=== PATIENT | female | born 1960 | race Caucasian/White ===

== ENCOUNTER → 2016-09-02 | Outpatient (CLI) | payer OTHER ==
[~2016-09-02] MED LIST: ADAL40KI SQ; ALBUAER2 INH; ASPI81TA28 PO; CALC600T57 PO; FLUO20CA35 PO; MAGN250T22 PO; NAPR1TAB9 PO; OMEP40CA PO
[2016-09-02 13:17] LABS: ALT/SGPT 66 U/L (12-78); BLOOD UREA NITROGEN 10 mg/dl (7-18); CALCIUM 9.4 mg/dl (8.5-10.1); CARBON DIOXIDE 22 mmol/L (21-32); CHLORIDE 103 mmol/L (98-107); CHOLESTEROL 244 mg/dl (0-200); GLUCOSE 232 mg/dl (70-99); POTASSIUM 4.3 mmol/L (3.5-5.1); SODIUM 136 mmol/L (136-145)
[2016-09-02 13:27] LABS: ESTIMATED AVERAGE GLUCOSE 240 mg/dl; HA1C FLAG Normal (Normal)
[2016-09-02 13:28] LABS: ALB/GLOB RATIO 0.9 (0.9-2); ALKALINE PHOSPHATASE 139 U/L (45-117); AST/SGOT 40 U/L (15-37); CHOLESTEROL/HDL RATIO 3.5; HDL CHOLESTEROL 70 mg/dl; LDL CHOLESTEROL CALCULATED 124 mg/dl; TRIGLYCERIDES 250 mg/dl (0-150); VERY LOW DENSITY LIPOPROT CALC 50 mg/dl
== END | disposition home or self-care (01) ==
LOC: C.LABPVFM 10:30
PROVIDERS: ATTEND Nurse Practitioner Family
DX: F32.9 Major depressive disorder, single episode, unspecified (principal); R73.09 Other abnormal glucose

== ENCOUNTER → 2017-02-13 | Outpatient (CLI) | payer OTHER ==
[2017-02-13 17:57] LABS: ALT/SGPT 26 U/L (12-78); AST/SGOT 20 U/L (15-37); BLOOD UREA NITROGEN 12 mg/dl (7-18); BUN/CREATININE RATIO 15.2 (10-20); CALCIUM 9.1 mg/dl (8.5-10.1); CARBON DIOXIDE 23 mmol/L (21-32); CHLORIDE 107 mmol/L (98-107); CREATININE 0.78 mg/dl (0.60-1.20); GLUCOSE 143 mg/dl (70-99); POTASSIUM 4.3 mmol/L (3.5-5.1); SODIUM 137 mmol/L (136-145)
[2017-02-13 17:58] LABS: ALKALINE PHOSPHATASE 131 U/L (45-117)
[2017-02-13 18:01] LABS: RATIO 9.5 mcg/mg (0-30.0)
[2017-02-14 06:23] LABS: ESTIMATED AVERAGE GLUCOSE 151 mg/dl; HA1C FLAG Normal (Normal)
== END | disposition home or self-care (01) ==
LOC: C.LABPVFM 14:29
PROVIDERS: ATTEND Nurse Practitioner Family
DX: E11.9 Type 2 diabetes mellitus without complications (principal)

== ENCOUNTER → 2017-03-28 | Outpatient (CLI) | payer OTHER ==
--- NOTE | 2017-03-31 07:41 | MAMMOGRAPHY REPORT ---
BILATERAL DIGITAL SCREENING MAMMOGRAM TOMOSYNTHESIS WITH CAD: 03/28/2017 CLINICAL HISTORY: Routine screening. Patient has no complaints. TECHNIQUE: Breast tomosynthesis in addition to standard 2D mammography was performed. Current study was also evaluated with a Computer Aided Detection (CAD) system. COMPARISON: Comparison is made to exams dated: 05/31/2014 mammogram, 08/06/2011 mammogram, 07/31/2010 [facility], and 06/30/2008. BREAST COMPOSITION: The tissue of both breasts is heterogeneously dense, which may obscure small mas ses. FINDINGS: No suspicious masses, calcifications, or areas of architectural distortion are noted in ei ther breast. There has been no significant interval change compared to prior exams. Scattered bilater al benign-appearing calcifications are not significantly changed. Mildly prominent axillary/intramam jane lymph nodes are stable compared to prior exams including the 2010 exam. IMPRESSION: ACR BI-RADS CATEGORY 2: BENIGN There is no mammographic evidence of malignancy. A 1 year screening mammogram is recommended. The pa tient will receive written notification of the results. Approximately 10% of breast cancers are not detected with mammography. A negative mammographic report should not delay biopsy if a clinically suggestive mass is present. Lilliam Chand M.D. ah/:03/28/2017 14:07:13 [employer]ities Ground Worker: Roz [email or web address])(Shanita), [facility] letter sent: Normal 1/2 BI-RADS Code: ACR BI-RADS Category 2: Benign
== END | disposition home or self-care (01) ==
LOC: C.MAMM 13:34
PROVIDERS: ATTEND Nurse Practitioner Family
DX: Z12.31 Encounter for screening mammogram for malignant neoplasm of breast (principal)

== ENCOUNTER 2018-09-15 11:32 | Inpatient (IN) ==
[2018-09-15] MEDS ORDERED: ONDANSETRON INJ 2 MG/ML 2 ML VIAL IV STA ×2 (12:03→13:40)
[2018-09-15] MEDS ORDERED: SODIUM CHLORIDE 0.9% 1000ML 1,000 ML IV ONE ×2 (12:03→12:04)
--- NOTE | 2018-09-15 12:15 | XRay Report ---
XR chest 1V portable CLINICAL HISTORY: SOB with exertion dyspnea COMPARISON STUDY: 08/16/2017 FINDINGS: The bones soft tissues and hemidiaphragms are normal. The cardiomediastinal silhouette is n ormal. The lungs are clear. The pulmonary vasculature is normal. IMPRESSION: Negative chest. The above report was generated using voice recognition software. It may contain grammatical, syntax or spelling errors. Electronically signed by: Natan Montero M.D. 09/15/2018 12:13 PM
[2018-09-15 13:37] LABS: Alanine Aminotransferase 20 U/L (12-78); Albumin Level 4.6 gm/dl (3.4-5.0); Aspartate Aminotransferase 35 U/L (15-37); BUN Creatinine Ratio 15.9 (10-20); Blood Urea Nitrogen 23 mg/dl (7-18); Carbon Dioxide 15 mmol/L (21-32); Chloride 98 mmol/L (98-107); Creatinine Clr Calc Pharmacy 42.1 ml/min; Est GFR (African American) 48.1; Est GFR (Non-African American) 41.5; Glucose 178 mg/dl (70-99); Magnesium 2.1 mg/dl (1.8-2.4); Potassium 3.7 mmol/L (3.5-5.1); Sodium 130 mmol/L (136-145)
[2018-09-15 13:37] LABS: Basophils # (auto) 0.05 K/uL (0-0.2); Basophils % (auto) 0.5 %; Eosinophils # (auto) 0.07 K/uL (0-0.5); Eosinophils % (auto) 0.7 %; Hematocrit (blood only) 44.6 % (37-47); Hemoglobin 15.7 g/dL (12.0-16.0); Immature Granulocytes # (auto) 0.02 K/uL (0.00-0.02); Immature Granulocytes % (auto) 0.2 %; Lymphocytes # (auto) 2.55 K/uL (1.2-3.4); Lymphocytes % (auto) 25.4 %; Mean Corpuscular Hgb Conc 35.2 g/dL (32-36); Mean Corpuscular Volume 84.5 fL (80-100); Mean Platelet Volume 9.5 fL (7.4-10.4); Monocytes # (auto) 1.38 K/uL (0.11-0.59); Monocytes % (auto) 13.7 %; Neutrophils # (auto) 5.98 K/uL (1.4-6.5); Neutrophils % (auto) 59.5 %; Platelet Count 367 K/uL (130-400); RDW Coefficient of Variation 14.3 % (11.5-14.5); RDW Standard Deviation 44.4 fL (36.4-46.3); Red Blood Count 5.28 M/uL (4.2-5.4); White Blood Count 10.05 K/uL (4.8-10.8)
[2018-09-15 13:38] LABS: Alkaline Phosphatase 129 U/L (45-117); Bilirubin,Total 0.4 mg/dl (0.2-1); Total Protein 8.9 gm/dl (6.4-8.2); Troponin I < 0.015 ng/ml (0-0.045)
[2018-09-15] MEDS ORDERED: SODIUM CHLORIDE 0.9% 1000ML 1,000 ML IV SCH (14:00)
--- NOTE | 2018-09-15 15:23 | History & Physical Report ---
Date of Service September 15, 2018 Assessment & Plan (1) Acute gastroenteritis: Clear liquid diet. Administer IV fluids. Pepcid and PPI therapy. Repeat stool cultures. Giardia test pending. Repeat C. difficile test negative Present on Admission?: Yes (2) Volume depletion: Aggressive IV fluid rehydration. Monitor intake and output Present on Admission?: Yes (3) Acute renal insufficiency: IV fluid rehydration. Hold lisinopril. Monitor intake and output. Daily lab studies Present on Admission?: Yes (4) Hyponatremia: Check serum osmolarity. Administer IV fluids. Serial lab studies Present on Admission?: Yes (5) Type 2 diabetes mellitus: Decrease basal insulin while on clear liquid diet. Sliding scale coverage Present on Admission?: Yes (6) History of Crohn's disease: Consult gastroenterology Present on Admission?: Yes (7) DVT prophylaxis: Lovenox subcu History of Present Illness Chief Complaint: Protracted nausea vomiting diarrhea Primary Care Provider: MARTINE White 57-year-old female with a history of Crohn's disease. For the past 6 days she has had intermittent episodes of nausea vomiting and diarrhea. She presented to the ED September [address] scan revealed postsurgical changes and some mes enteric adenopathy. Stool cultures were negative at that time. C. difficile was negative on September 13 and again today. She is volume depleted and has had some weakness and lightheadedness. Creatinine is up to 1.4. Sodium is 130 and bicarb is slightly low. This should improve with rehydration. She is acutely ill and admitted for further evaluation and treatment. Gastroenterology consultation has been requested. She drinks bottled water and also has city water to her house. No recent travels. Allergies Allergy/AdvReac Type Severity Reaction Status Date / Time methotrexate Allergy Intermediate RASH Unverified 09/15/18 13:17 metoprolol Allergy Mild RASH Verified 09/15/18 13:17 Sulfa (Sulfonamide Allergy Unknown RASH Verified 09/15/18 13:17 Antibiotics) metformin AdvReac Intermediate NAUSEA/WEAK Unverified 09/15/18 13:17 NESS metronidazole AdvReac Mild FLAGYL = Verified 09/15/18 13:17 RASH. TOLERATED IV FLAGYL 01/2011 ADM W/SLIGHT ITCH Home Medications Home Medications Medication Instructions Recorded Confirmed Type acetaminophen 500 mg PO DIRECTED PRN 07/30/18 09/15/18 History albuterol sulfate HFA 90 2 puff INHALATION QID PRN #6.7 gm 07/30/18 09/15/18 Rx mcg/actuation aerosol inhaler atorvastatin 10 mg PO QAM 07/30/18 09/15/18 History calcium carbonate-vitamin D3 1 tab PO QAM 07/30/18 09/15/18 History [Calcium 500 + D] fluoxetine 20 mg PO QAM 07/30/18 09/15/18 History insulin glargine 10 units SUBCUT QAM 07/30/18 09/15/18 History lisinopril 5 mg PO QAM 07/30/18 09/15/18 History magnesium oxide 400 mg PO QAM 07/30/18 09/15/18 History omeprazole 20 mg PO QAM 07/30/18 09/15/18 History dulaglutide 1.5 mg/0.5 mL 1.5 mg SUBCUT WK #2 ml 08/06/18 09/15/18 Rx subcutaneous pen injector ondansetron 4 mg PO DAILY PRN 09/15/18 09/15/18 History Past Med/Surg History Medical History Ileostomy present (Chronic) Chest pain (Acute) Surgical History History of colon resection (Resolved) Social History Preferred Language: Arabic Feels Safe at Home: Yes Smoking Status: Former smoker Review of Systems Review of Systems: Constitutional-no fever or chills. Generalized weakness and lightheadedness ENT-no blurred vision, no double vision, no epistaxis, no sore throat Respiratory-no cough, no wheezing, no shortness of breath Cardiac-no palpitations, no chest pain, no syncope GI-nausea vomiting and diarrhea. No hematemesis. No melena. No hematochezia. No abdominal cramping -no urinary retention, no urinary incontinence, no dysuria, no hematuria Musculoskeletal-no joint pain, no muscle tenderness Skin-no bruising, no rashes, no pruritus Neuro-no isolated weakness, no paresthesia, no weakness Psych-no depression, no anxiety Physical Exam Physical Exam: General-alert and oriented x3, no fevers, no chills HEENT-head atraumatic and normocephalic, TMs intact bilaterally, pupils equal and reactive to light, extraocular muscles intact Neck-no lymphadenopathy or thyromegaly, trachea midline Chest-clear to auscultation percussion. No rales wheezing or rhonchi Cardiac-tachycardic regular rate and rhythm, normal S1 and S2, no murmurs Abdomen-normal bowel sounds, nontender, no hepatosplenomegaly. Nondistended. Functioning right lower quadrant colostomy Extremities-no cyanosis, clubbing, or edema Neuro-cranial nerves II through XII intact, motor and sensory function within normal limits, strength symmetrical 5/5, no focal deficits Psych-normal affect, normal mood Results & Data Vital Signs (Past 12 Hours) Vital Signs Temp Pulse Pulse Resp BP BP Pulse Ox 09/15/18 14:51 101 H 18 177/110 H 99 09/15/18 13:37 102 H 20 151/100 H 99 09/15/18 11:33 36.3 C L 128 H 17 108/91 99 Laboratory Results 09/15/18 13:28 09/15/18 12:50 PG Care Time/CCT Total # of Minutes Spent Total Time Spent with Patient: Total time spent is greater than 50% in coordination of care (as documented) at patient's floor/unit and/or counseling patient:
[2018-09-15] MEDS ORDERED: ALUMINUM/MAGNESIUM SUSP 30 ML UDC PO PRN (16:37)
[2018-09-15] MEDS ORDERED: ZOLPIDEM TARTRATE 5 MG TAB PO PRN (16:37)
[2018-09-15] MEDS ORDERED: ALBUTEROL HFA 8 GM INHALER INH PRN (16:37)
[2018-09-15] MEDS ORDERED: DEXTROSE 50% 50 ML SYRINGE IV PRN (17:00)
[2018-09-15] MEDS ORDERED: GLUCOSE 40% GEL 15 GM TUBE PO PRN (17:00)
[2018-09-15] MEDS ORDERED: GLUCAGON FOR INJ 1 MG VIAL IM PRN (17:00)
[2018-09-15] MEDS ORDERED: GLUCOSE 10 TABS/TUBE PO PRN (17:00)
[2018-09-15] MEDS ORDERED: CARBOHYDRATES FOR HYPOGLYCEMIA PO PRN (17:00)
[2018-09-15] MEDS: SODIUM CHLORIDE 0.9% 1000ML 1,000 ML IV SCH ×2 (17:34→23:16)
--- NOTE | 2018-09-15 17:48 | Emergency Department Note ---
Entered by Cecily Stack acting as a scribe for Johnson Fountain MD ED Provider Note Name: Delores Meza Age: 57F Arrives Via: POB Informant: Patient CC: Vomiting/ Diarrhea HPI: The patient is a 57 year old female with a history of an ileostomy bag that is presenting to the Emergency Room with complaints of persistent watery diarrhea for the past 6 days. The patient reports some associated weakness with pain in her chest and back with standing. She states that she is having some shortness of breath and dehydration. She denies any blood in her stools. She denies drinking any well water or any recent trauma. The patient reports that she has a history of a colostomy. She notes that she had surgery to move the ileostomy bag 9 weeks ago due to prior issues and an abdominal wall collapse following the initial surgery. She denies any current antibiotic use. She notes that she had C.difficile 8 months ago but notes that her current symptoms do not resemble the past episode. The patient reports that she was here several days ago and received fluids and a CT scan. She notes that she has a history of Crohn's disease. ROS: See above HPI for pertinent positives & negatives. A total of 10 systems reviewed and were otherwise negative. Past Medical History: Crohn's disease, colostomy Past Surgical History: Resection of rectum Family History: No significant family history Social History: , disabled/unemployed; Former smoker, occasional alcohol use, no drugs. Home Medications: Zofran Allergies Metoprolol, Methotrexate, Sulfa drugs, Metformin, Metronidazole Physical: Vitals: BP: 108/91; P: 128; R: 17; T: 97.3F, O2 97% RA Exam: GENERAL: Patient is tired appearing and in moderate distress. Dehydrated. EYES: No scleral icterus, unremarkable pupils. ENT: Mucous membranes dry, no nasal congestion. NECK: No masses appreciated, no meningismus, trachea is midline. RESPIRATORY: No dyspnea. Clear to auscultation and equal bilaterally. No wheeze, no rhonchi. CARDIOVASCULAR: Tachycardic rate and regular rhythm. No murmurs, rubs, gallops appreciated. GASTROINTESTINAL: Abdomen soft, non-tender, no peritonitis. Bowel sounds positive. No masses appreciated. Right-sided ostomy bag present with liquid stool. BACK: No midline tenderness, no CVA tenderness EXTREMITIES: Normal motion all extremities, no cyanosis, no edema. NEUROLOGIC: Alert and oriented, no acute motor or sensory deficits, no focal weakness, cranial nerves grossly intact. SKIN: No rash, no jaundice, no diaphoresis. ED Course: Prior Medical Record, Triage/Nursing Notes, Medications, Allergies reviewed by Me Vital Signs: reviewed and remarkable for tachycardia Labs: Reviewed and remarkable for acute cr elevation with low bicarb Interventions: saline lock, nss bolus 2 L IV, zofran 4mg IV Imaging: XR chest 1V portable CLINICAL HISTORY: SOB with exertion dyspnea COMPARISON STUDY: 08/16/2017 FINDINGS: The bones soft tissues and hemidiaphragms are normal. The cardiomediastinal silhouette is normal. The lungs are clear. The pulmonary vasculature is normal. IMPRESSION: Negative chest. The above report was generated using voice recognition software. It may contain grammatical, syntax or spelling errors. Electronically signed by: Natan Montero M.D. 09/15/2018 12:13 PM EKG: Per My Interpretation: Indication Weakness: Sinus Tach at 117 bpm without ectopy nor ischemia. QTC 485. No change from 09/13/18 Course: 1155:The patient was evaluated in room C11B. A complete history and physical examination was performed. 1259: IV obtained by IV team. Fluids have been started. 1356: I reevaluated the patient at this time. Her HR has improved to 100bpm and she is feeling better. She is amenable with hospitalization. 1415: I discussed the patients case with Dr. Schneider [facility] [place], who will evaluate the patient for further management and care. 1420: Upon reevaluation, the patient is resting comfortably. I discussed laboratory and radiographic results with the patient. She verbalized agreement of the treatment plan. The patient will be evaluated for further management and care. Blood pressure: Normal. No Referral necessary Disposition: Hospitalization Differentials: Differential diagnosis: Etiologies such as gastroenteritis, food borne illness, infections, a ppendicitis, diverticulitis, inflammatory bowel disease, obstruction, GI bleed, biliary pathology, as well as others were entertained. Medical Decision Making: Pleasant 57 yr old female with a week of diarrheal illness and poor oral intake. She has history of crohn's with previous colectomy. She arrives with continued symptoms of weakness in setting of diarrhea. Seen a few days ago and felt much better and wanted to try outpatient treatment without success. She was given IV fluids with vast improvement. Her labs are concerning for persistent renal insufficiency and worsening low bicarb. She is not septic. Cdiff negative x 2. Suspect this is viral infection. She will come in to hospitalists for further management. Impression: Diarrhea, dehydration, acute renal insufficiency, low bicarbonate level The scribe's documentation has been prepared under my direction and personally reviewed by me in its entirety. I confirm that the note above accurately reflects all work, treatment, procedures, and medical decision making performed by me. 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 Beliefs That Will Affect Care: None Current Living Situation: Spouse Other Information That Helps Us Care for You: No Feels Safe at Home: Yes Safety Concerns: Feels Safe At This Time Smoking Status: Former smoker Tobacco Type: cigarettes Cigarettes Per Day: 1/2 PPD Do You Dip or Chew Tobacco: No Second Hand Exposure: No Tobacco Cessation E ducation Requested by Patient: No Hx Alcohol Use: Yes Hx Substance Use: No Results & Data Vital Signs Vital Signs - 24 hr 09/15/18 11:33 09/15/18 11:54 09/15/18 13:37 Temperature 36.3 C L Temperature Source Oral Sepsis Recent Fever Within 48 Hours No Sepsis New/Unexplained Change in Mental Status No Sepsis Action Taken by Nursing No Action Required Pulse Rate 128 H Pulse Rate [Apical] 102 H Respiratory Rate 17 20 Respiratory Effort / Characteristics Non-Labored Non-Labored Respiratory Depth Normal Respiratory Pattern Regular Blood Pressure 108/91 Blood Pressure [Left Arm] 151/100 H Blood Pressure Mean 96 Blood Pressure Mean [Left Arm] 117 Blood Pressure Position Sitting Pulse Oximetry 99 99 Oxygen Delivery Method Room Air 09/15/18 14:51 Temperature Temperature Source Sepsis Recent Fever Within 48 Hours Sepsis New/Unexplained Change in Mental Status Sepsis Action Taken by Nursing Pulse Rate Pulse Rate [Apical] 101 H Respiratory Rate 18 Respiratory Effort / Characteristics Respiratory Depth Respiratory Pattern Blood Pressure Blood Pressure [Left Arm] 177/110 H Blood Pressure Mean Blood Pressure Mean [Left Arm] 132 Blood Pressure Position Pulse Oximetry 99 Oxygen Delivery Method Room Air Laboratory Data Result diagrams: 09/15/18 13:28 09/15/18 12:50 Lab Results 09/15/18 09/15/18 09/15/18 Range/Units 12:23 12:50 13:28 WBC 10.05 (4.8-10.8) K/uL RBC 5.28 (4.2-5.4) M/uL Hgb 15.7 (12.0-16.0) g/dL Hct 44.6 (37-47) % MCV 84.5 (80-100) fL MCH 29.7 (25-34) pg MCHC 35.2 (32-36) g/dL RDW Std Deviation 44.4 (36.4-46.3) fL RDW Coeff of Purvi 14.3 (11.5-14.5) % Plt Count 367 (130-400) K/uL MPV 9.5 (7.4-10.4) fL Immature Gran % (Auto) 0.2 % Neut % (Auto) 59.5 % Lymph % (Auto) 25.4 % Mccreary % (Auto) 13.7 % Eos % (Auto) 0.7 % Baso % (Auto) 0.5 % Immature Gran # (Auto) 0.02 (0.00-0.02) K/uL Neut # (Auto) 5.98 (1.4-6.5) K/uL Lymph # (Auto) 2.55 (1.2-3.4) K/uL Mccreary # (Auto) 1.38 H (0.11-0.59) K/uL Eos # (Auto) 0.07 (0-0.5) K/uL Baso # (Auto) 0.05 (0-0.2) K/uL ESR (0-21) mm/hr Sodium 130 L (136-145) mmol/L Potassium 3.7 (3.5-5.1) mmol/L Chloride 98 (98-107) mmol/L Carbon Dioxide 15 L (21-32) mmol/L Anion Gap 18.0 H (3-11) BUN 23 H (7-18) mg/dl Creatinine 1.42 H (0.6-1.2) mg/dl Est Cr Clr Drug Dosing 42.1 ml/min Est GFR ( Amer) 48.1 Est GFR (Non-Af Amer) 41.5 BUN/Creatinine Ratio 15.9 (10-20) Glucose 178 H (70-99) mg/dl Calcium 10.0 (8.5-10.1) mg/dl Magnesium 2.1 (1.8-2.4) mg/dl Total Bilirubin 0.4 (0.2-1) mg/dl Direct Bilirubin (0-0.2) mg/dl AST 35 (15-37) U/L ALT 20 (12-78) U/L Alkaline Phosphatase 129 H (45-117) U/L Troponin I < 0.015 (0-0.045) ng/ml Total Protein 8.9 H (6.4-8.2) gm/dl Albumin 4.6 (3.4-5.0) gm/dl Lipase 198 (73-393) U/L Specimen Hemolysis Stl C. diff Tox B Gene Negative Cdiff Gene (Neg) 09/15/18 Range/Units 13:28 WBC (4.8-10.8) K/uL RBC (4.2-5.4) M/uL Hgb (12.0-16.0) g/dL Hct (37-47) % MCV (80-100) fL MCH (25-34) pg MCHC (32-36) g/dL RDW Std Deviation (36.4-46.3) fL RDW Coeff of Purvi (11.5-14.5) % Plt Count (130-400) K/uL MPV (7.4-10.4) fL Immature Gran % (Auto) % Neut % (Auto) % Lymph % (Auto) % Mccreary % (Auto) % Eos % (Auto) % Baso % (Auto) % Immature Gran # (Auto) (0.00-0.02) K/uL Neut # (Auto) (1.4-6.5) K/uL Lymph # (Auto) (1.2-3.4) K/uL Mccreary # (Auto) (0.11-0.59) K/uL Eos # (Auto) (0-0.5) K/uL Baso # (Auto) (0-0.2) K/uL ESR 42 H (0-21) mm/hr Sodium (136-145) mmol/L Potassium (3.5-5.1) mmol/L Chloride (98-107) mmol/L Carbon Dioxide (21-32) mmol/L Anion Gap (3-11) BUN (7-18) mg/dl Creatinine (0.6-1.2) mg/dl Est Cr Clr Drug Dosing ml/min Est GFR ( Amer) Est GFR (Non-Af Amer) BUN/Creatinine Ratio (10-20) Glucose (70-99) mg/dl Calcium (8.5-10.1) mg/dl Magnesium (1.8-2.4) mg/dl Total Bilirubin (0.2-1) mg/dl Direct Bilirubin (0-0.2) mg/dl AST (15-37) U/L ALT (12-78) U/L Alkaline Phosphatase (45-117) U/L Troponin I (0-0.045) ng/ml Total Protein (6.4-8.2) gm/dl Albumin (3.4-5.0) gm/dl Lipase (73-393) U/L Specimen Hemolysis Stl C. diff Tox B Gene (Neg) Administered Medications Sodium Chloride (Nss 1000ml) 1,000 mls @ 175 mls/hr IV .Q5H43M SUSAN Stop: 10/15/18 17:59 Last Admin: 09/15/18 17:34 Dose: 175 mls/hr Documented by: [id number] Discontinued Medications Sodium Chloride (Nss 1000ml) 1,000 mls @ 999 mls/hr IV .Q1H1M ONE Stop: 09/15/18 13:03 Last Infusion: 09/15/18 14:14 Dose: 0 mls/hr Documented by: [id number] Admin: 09/15/18 12:59 Dose: 999 mls/hr Documented by: [id number] Sodium Chloride (Nss 1000ml) 1,000 mls @ 999 mls/hr IV .Q1H1M ONE Stop: 09/15/18 13:04 Last Infusion: 09/15/18 14:59 Dose: 0 mls/hr Documented by: [id number] Admin: 09/15/18 14:06 Dose: 999 mls/hr Documented by: [id number] Sodium Chloride (Nss 1000ml) 1,000 mls @ 125 mls/hr IV .Q8H SUSAN Stop: 10/15/18 13:59 Last Admin: 09/15/18 16:38 Dose: Not Given Documented by: [id number] Ondansetron HCl (Zofran) 4 mg IV NOW STA Stop: 09/15/18 12:04 Last Admin: 09/15/18 12:59 Dose: 4 mg Documented by: [id number] Ondansetron HCl (Zofran) 4 mg IV NOW STA Stop: 09/15/18 13:41 Last Admin: 09/15/18 14:06 Dose: 4 mg Documented by: [id number] Discharge Plan Visit Data *Final* Discharge Date/Time: 09/15/18 16:01 Chief Complaint: Respiratory Problems Stated Complaint: NAUSEA, VOMITING, DIARRHEA, SHORTNESS OF BREATH ED Provider: Johnson Fountain Discharge Problem: Diarrhea, Dehydration, Acute renal insufficiency, Low bicarbonate Patient Disposition: Admitted As Inpatient Discharge Instructions Interventions: ED Discharge Assessment Last Done: 09/15/18 16:01 Discharge Problem: Diarrhea Qualifiers: Diarrhea type: unspecified type Qualified Code(s): R19.7 - Diarrhea, unspecified The scribe's documentation has been prepared under my direction and personally reviewed by me in its entirety. I confirm that the note above accurately reflects all work, treatment, procedures, and medical decision making performed by me.
[2018-09-15] MEDS: FAMOTIDINE 20 MG in SYRINGE 3 ML IV SCH (18:10)
[2018-09-15] MEDS: INSULIN ASPART 100 UNITS/ML 3 ML PEN SC SCH ×2 (18:33→21:52)
[2018-09-15 19:18] LABS: Appearance Urine Clear (Clear); Bacteria Urine Automated Negative (Negative); Bilirubin Urine Negative (Negative); Color Urine Yellow; Epithelial Cell Urine Auto 20-30 /lpf (0-5); Glucose Urine UA Negative (Negative); Ketones Urine 2+ (Negative); Leukocyte Esterase Urine Negative (Negative); Nitrite Urine Negative (Negative); Protein Urine 1+ (Negative); Specific Gravity Urine 1.019 (1.000-1.030); Urobilinogen Urine Negative (Negative)
[2018-09-15] MEDS: ENOXAPARIN INJ 40 MG/0.4 ML SYR SQ SCH (21:19)
[2018-09-16] MEDS: SODIUM CHLORIDE 0.9% 1000ML 1,000 ML IV SCH ×4 (04:42→21:43)
[2018-09-16] MEDS: FAMOTIDINE 20 MG in SYRINGE 3 ML IV SCH ×2 (05:56→17:45)
[2018-09-16 07:34] LABS: Basophils # (auto) 0.05 K/uL (0-0.2); Basophils % (auto) 0.7 %; Eosinophils # (auto) 0.26 K/uL (0-0.5); Eosinophils % (auto) 3.5 %; Hematocrit (blood only) 34.9 % (37-47); Lymphocytes # (auto) 3.36 K/uL (1.2-3.4); Lymphocytes % (auto) 45.7 %; Mean Corpuscular Hgb Conc 34.4 g/dL (32-36); Mean Corpuscular Volume 85.1 fL (80-100); Mean Platelet Volume 9.2 fL (7.4-10.4); Monocytes # (auto) 0.94 K/uL (0.11-0.59); Monocytes % (auto) 12.8 %; Neutrophils # (auto) 2.74 K/uL (1.4-6.5); Neutrophils % (auto) 37.3 %; Platelet Count 306 K/uL (130-400); RDW Coefficient of Variation 14.4 % (11.5-14.5); RDW Standard Deviation 45.2 fL (36.4-46.3); White Blood Count 7.35 K/uL (4.8-10.8)
--- NOTE | 2018-09-16 07:44 | Hospitalist Progress Note ---
Date of Service September 16, 2018 Assessment & Plan (1) Acute gastroenteritis: Tolerating advancement of diet continue intravenous fluids. Pepcid and PPI therapy. Repeat stool cultures have been negative so far. Giardia test pending. Repeat C. difficile test negative, GI medicine is seen the patient (2) Volume depletion: Subjectively feels more improved continue hydration (3) Acute renal insufficiency: Continue holding lisinopril. Resolved (4) Hyponatremia: Resolved (5) Type 2 diabetes mellitus: Basal bolus insulin with carb ratio (6) History of Crohn's disease: Consult gastroenterology follow further recommendations (7) DVT prophylaxis: Lovenox subcu Subjective Patient is in good spirits today she is still having increased output and did see GI medicine today additional testing has been ordered. She still has a little lightheaded when she stands up but much better than when she presented Review of Systems Review of Systems: ROS: well nourished well developed. No double vision blurry vision No problems with speech or swallowing No palpitations, chest pain or pressure No Wheezing or breathing issues mild abdominal pain without nausea / vomiting / diarrhea No burning urine urine frequency or changes in color No focal joint pain or muscle pain No skin rashes or oral lesions No unusual bruising or bleeding No focused back pain or numbness or loss of strength No changes in memory or confusion Physical Exam Physical Exam: The patient appeared well nourished in mild distress Vital signs as documented. Head exam is unremarkable. normocephalic, atraumatic Neck is without jugular venous distension, thyromegaly, or lymphademopathy Lungs are clear to auscultation and percussion. Cardiac exam reveals Rhythm is regular. First and second heart sounds normal. Abdominal exam reveals normal bowel sounds, mildly uncomfortable no rebound or guarding Extremities are nonedematous and both pedal pulses are present Neurologic exam is A&Ox3, no focal deficits, strength is equal bilateral Psychologically seems neither anxious or depressed Skin is warm Dry without bruises or lesions Results & Data Vital Signs (Past 12 Hours) Vital Signs Temp Pulse Resp BP Pulse Ox 09/16/18 07:42 36.8 C 76 18 138/84 99 09/15/18 23:11 37.0 C 91 H 19 151/81 H 99 PG Care Time/CCT Total # of Minutes Spent Total Time Spent with Patient: Total time spent is greater than 50% in coordina tion of care (as documented) at patient's floor/unit and/or counseling patient:
[2018-09-16 08:11] LABS: BUN Creatinine Ratio 18.5 (10-20); Creatinine Clr Calc Pharmacy 82.2 ml/min; Est GFR (African American) 114.1; Est GFR (Non-African American) 98.5; Potassium 2.7 mmol/L (3.5-5.1)
--- NOTE | 2018-09-16 08:13 | Gastrointestinal Consultation ---
Date of Consultation September 16, 2018 Assessment & Plan (1) Acute diarrhea: Most likely infectious though C-diff (-) x 2 and stool culture (-) thus far. Stool for Giardia and O&P are pending. Low fat, low fiber bland diet. Appreciate management of IV fluids, correction of electrolyte derangement per primary hospitalist. Colestid 2grams BID. Will consider colonoscopy if does not respond to antidiarrheals. Present on Admission?: Yes Supervising Physician Co-Signing Physician Notes I saw and evaluated the patient. We are consulted for question of an acute gastroenteritis. The patient does have a history of Crohn's disease and is followed by my partner . Physical examination No obvious distress Ostomy located on the left-hand side Impression: She with symptoms suggestive of an upper gastroenteritis likely viral cause. I would suggest testing of her stool C. difficile and stool cultures. We will have the patient begin use of Questran 4 g twice daily. History of Present Illness Requesting Physician: Dr. Paez Attending Physician: Ray Paez MD History of Present Illness Ms. Meza is a 57-year-old female with a history of DM 2, Crohn's colitis managed by Dr. Araya and maintained on Entyvio infusions. She began with sudden onset of diffuse periumbilical pain nausea vomiting and diarrhea on Friday evening. She has been emptying her 500 mL ostomy bag 5-6 times per day: Cloudy brown liquid, no blood. She presented to the ED on Friday and was given IV fluids and discharged and presented again yesterday and was admitted. Her symptoms have persisted a total of 6 days now. Though she has not had a recent Crohn's flare, she has had multiple abdominal surgeries including left- sided ostomy formation then shirley-ostomy hernia repair, then in June 2018 underwent closure of that left-sided colostomy with creation of a right-sided colostomy. She has been doing well since surgery until last week. She does not feel that this is a Crohn's flare, as her pain is in a different area, she does not have blood in her diarrhea and it came on very suddenly. Additionally, she mentions having had a severe frontal headache the first 2 days of her illness. She is seen and examined while resting in bed. She appears well, is alert oriented and hemodynamically stable, though she does have diffuse abdominal tenderness on exam. WBC was 11 3 days ago, but is now normal and she has been afebrile without chills or sweats. Though no abdominal imaging has been obtained since admission, there was a CT with IV and oral contrast obtained on 09/13/2018 suggestive of mesenteric adenitis without mention of bowel abnormalities. Prior endoscopy includes: Colonoscopy 05/07/18: The ostomy stoma appeared narrow; could not fit an adult colonoscope (prior to ostomy revision). into the stoma, and used an upper endoscope to complete the procedure. There was no stenosis of the stoma; rather the stomal opening appears to be small. There was 40 cm of colon remaining; the colon was entirely normal and without evidence of active colitis. The colon was biopsied every 10 cm in 4 quadrants. The ileum was normal. The ileum was biopsied. EGD 09/08/2017: Z-line irregular, 38 cm from the incisors. Biopsied. - Small hiatal hernia. - Normal examined duodenum. Allergies Allergy/AdvReac Type Severity Reaction Status Date / Time methotrexate Allergy Intermediate RASH Unverified 09/15/18 13:17 metoprolol Allergy Mild RASH Verified 09/15/18 13:17 Sulfa (Sulfonamide Allergy Unknown RASH Verified 09/15/18 13:17 Antibiotics) metformin AdvReac Intermediate NAUSEA/WEAK Unverified 09/15/18 13:17 NESS metronidazole AdvReac Mild FLAGYL = Verified 09/15/18 13:17 RASH. TOLERATED IV FLAGYL 01/2011 ADM W/SLIGHT ITCH Home Medications Home Medications Medication Instructions Recorded Confirmed Type acetaminophen 500 mg PO DIRECTED PRN 07/30/18 09/15/18 History albuterol sulfate HFA 90 2 puff INHALATION QID PRN #6.7 gm 07/30/18 09/15/18 Rx mcg/actuation aerosol inhaler atorvastatin 10 mg PO QAM 07/30/18 09/15/18 History calcium carbonate-vitamin D3 1 tab PO QAM 07/30/18 09/15/18 History [Calcium 500 + D] fluoxetine 20 mg PO QAM 07/30/18 09/15/18 History insulin glargine 10 units SUBCUT QAM 07/30/18 09/15/18 History lisinopril 5 mg PO QAM 07/30/18 09/15/18 History magnesium oxide 400 mg PO QAM 07/30/18 09/15/18 History omeprazole 20 mg PO QAM 07/30/18 09/15/18 History dulaglutide 1.5 mg/0.5 mL 1.5 mg SUBCUT WK #2 ml 08/06/18 09/15/18 Rx subcutaneous pen injector ondansetron 4 mg PO DAILY PRN 09/15/18 09/15/18 History Patient History Medical History History of Crohn's disease (Chronic) Type 2 diabetes mellitus (Chronic) Hyponatremia (Acute) Volume depletion (Acute) Acute gastroenteritis (Acute) Acute renal insufficiency (Acute) Ileostomy present (Chronic) Chest pain (Acute) Surgical History History of colon resection (Resolved) Social History Preferred Language: British Communication Ability: Effective Information Systems Technician Required: No Beliefs That Will Affect Care: None Current Living Situation: Spouse Other Information That Helps Us Care for You: No Feels Safe at Home: Yes Safety Concerns: Feels Safe At This Time Smoking Status: Former smoker Tobacco Type: cigarettes Cigarettes Per Day: 1/2 PPD Do You Dip or Chew Tobacco: No Second Hand Exposure: No Tobacco Cessation Education Requested by Patient: No Hx Alcohol Use: Yes Hx Substance Use: No Review of Systems Review of Systems: ROS: Gen: Denies weakness, fevers, weight loss Eyes: No eye redness, or pain, no recent vision changes Resp: No SOB, no cough Cardio: No palpitations/irregular beats, no chest pain GI: + increased ostomy output + periumbilical abdominal pain, +nausea/vomiting; nuasea persists but is improved and vomiting has resolved since admision. : Denies pain on urination Skin: No jaundice, itching or new rashes Physical Exam Constitutional: WD/WN, vitals as above Eyes: PERRL, conjunctivae normal, anicteric sclerae ENMT: external ear and nose normal, oropharynx normal Neck: trachea midline, no thyromegaly Respiratory: normal respiratory effort, lungs clear to auscultation Cardiovascular: RRR, no murmur, no edema Gastrointestinal (Abdomen): Inspection/Auscultation: abdomen normal to inspection; abdomen not distended Percussion/Palpation: + abdomen tender (diffuse, periumbilical) and abdomen soft Ostomy with approx 300ml of clear/brown liquid, no peristomal redness or bleeding. Skin: no rashes, warm and dry Neurologic: PERRL, EOMI, accommodation nl, no face palsy, no dysarthria Psychiatric: A+Ox3, euthymic affect Genitourinary: no vaginal lesions, no adnexal mass Lymphatic: no cervical or axillary lymphadenopathy Results & Data Vital Signs (Past 12 Hours) Vital Signs Temp Pulse Resp BP Pulse Ox 09/16/18 07:42 36.8 C 76 18 138/84 99 09/15/18 23:11 37.0 C 91 H 19 151/81 H 99
[2018-09-16] MEDS ORDERED: POTASSIUM CHLORIDE 20 MEQ TABCR PO STA (08:23)
[2018-09-16] MEDS ORDERED: POTASSIUM CHLORIDE 10 MEQ / 100ML WTR IV STA (09:00)
[2018-09-16] MEDS: FLUOXETINE HCL 20 MG CAP PO SCH (09:12)
[2018-09-16] MEDS: CALCIUM 600MG + VIT D 400 IU TAB PO SCH (09:12)
[2018-09-16] MEDS: ATORVASTATIN 10 MG TAB PO SCH (09:12)
[2018-09-16] MEDS: PANTOprazole 40 MG TAB PO SCH (09:12)
[2018-09-16] MEDS: MAGNESIUM OXIDE 400 MG TAB PO SCH (09:16)
[2018-09-16] MEDS: INSULIN GLARGINE SOLOSTAR 100 UNITS/ML 3 ML PEN SQ SCH (09:17)
[2018-09-16] MEDS: INSULIN ASPART 100 UNITS/ML 3 ML PEN SC SCH ×4 (09:19→21:20)
[2018-09-16] MEDS: ONDANSETRON INJ 2 MG/ML 2 ML VIAL IV PRN (09:21)
[2018-09-16] MEDS: POTASSIUM CHLORIDE / WTR 10 MEQ/100 ML PLCT IV SCH ×3 (09:23→11:45)
[2018-09-16] MEDS: POTASSIUM CHLORIDE 20 MEQ TABCR PO SCH ×2 (09:41→20:29)
[2018-09-16] MEDS ORDERED: COLESTIPOL HCL 5 GM POWDER PACK PO SCH (10:30)
[2018-09-16] MEDS: COLESTIPOL HCL 1 GM TAB PO SCH ×2 (12:55→21:43)
[2018-09-16 13:28] LABS: BUN Creatinine Ratio 12.8 (10-20); Calcium 8.2 mg/dl (8.5-10.1); Creatinine Clr Calc Pharmacy 71.7 ml/min; Est GFR (African American) 99.2; Est GFR (Non-African American) 85.6; Potassium 3.7 mmol/L (3.5-5.1)
[2018-09-16] MEDS: ACETAMINOPHEN 325 MG TAB PO PRN (13:30)
[2018-09-16] MEDS: ENOXAPARIN INJ 40 MG/0.4 ML SYR SQ SCH (20:30)
[2018-09-17] MEDS: SODIUM CHLORIDE 0.9% 1000ML 1,000 ML IV SCH ×4 (03:17→20:08)
[2018-09-17] MEDS: FAMOTIDINE 20 MG in SYRINGE 3 ML IV SCH ×2 (05:37→17:43)
[2018-09-17] MEDS: ONDANSETRON INJ 2 MG/ML 2 ML VIAL IV PRN ×2 (05:43→18:35)
[2018-09-17 06:14] LABS: Basophils # (auto) 0.03 K/uL (0-0.2); Basophils % (auto) 0.5 %; Eosinophils # (auto) 0.18 K/uL (0-0.5); Eosinophils % (auto) 2.8 %; Hemoglobin 12.5 g/dL (12.0-16.0); Lymphocytes # (auto) 2.42 K/uL (1.2-3.4); Lymphocytes % (auto) 37.5 %; Mean Corpuscular Hgb Conc 33.8 g/dL (32-36); Mean Corpuscular Volume 86.4 fL (80-100); Mean Platelet Volume 8.9 fL (7.4-10.4); Monocytes % (auto) 9.3 %; Neutrophils # (auto) 3.22 K/uL (1.4-6.5); Neutrophils % (auto) 49.9 %; Platelet Count 342 K/uL (130-400); RDW Coefficient of Variation 14.6 % (11.5-14.5); RDW Standard Deviation 46.3 fL (36.4-46.3); Red Blood Count 4.28 M/uL (4.2-5.4); White Blood Count 6.45 K/uL (4.8-10.8)
[2018-09-17 06:39] LABS: BUN Creatinine Ratio 8.7 (10-20); Calcium 8.1 mg/dl (8.5-10.1); Est GFR (African American) 113.6; Potassium 3.2 mmol/L (3.5-5.1)
[2018-09-17] MEDS ORDERED: POTASSIUM CHLORIDE 10 MEQ / 100ML WTR IV STA (08:14)
[2018-09-17] MEDS: CALCIUM 600MG + VIT D 400 IU TAB PO SCH (08:21)
[2018-09-17] MEDS: ATORVASTATIN 10 MG TAB PO SCH (08:21)
[2018-09-17] MEDS: FLUOXETINE HCL 20 MG CAP PO SCH (08:21)
[2018-09-17] MEDS: PANTOprazole 40 MG TAB PO SCH (08:21)
[2018-09-17] MEDS: POTASSIUM CHLORIDE 20 MEQ TABCR PO SCH ×2 (08:22→20:09)
[2018-09-17] MEDS: MAGNESIUM OXIDE 400 MG TAB PO SCH (08:22)
[2018-09-17] MEDS: INSULIN GLARGINE SOLOSTAR 100 UNITS/ML 3 ML PEN SQ SCH (08:24)
[2018-09-17] MEDS: INSULIN ASPART 100 UNITS/ML 3 ML PEN SC SCH ×4 (08:28→20:31)
[2018-09-17] MEDS: POTASSIUM CHLORIDE / WTR 10 MEQ/100 ML PLCT IV SCH ×3 (08:48→11:00)
[2018-09-17] MEDS: COLESTIPOL HCL 1 GM TAB PO SCH ×2 (09:52→21:22)
--- NOTE | 2018-09-17 12:03 | Hospitalist Progress Note ---
Date of Service September 17, 2018 Assessment & Plan (1) Acute gastroenteritis: Tolerating advancement of diet, large amount of ostomy output, will continue intravenous fluids. Pepcid and PPI therapy. Repeat stool cultures have been negative so far. Giardia test pending. Repeat C. difficile test negative, GI medicine is seen the patient and agrees to adding immodium (2) Volume depletion: Subjectively feels more improved continue hydration, still without frequent urination or clear urine, feels lightheaded with walking (3) Acute renal insufficiency: Resolved, adding lisinopril back (4) Hyponatremia: Resolved (5) Type 2 diabetes mellitus: Basal bolus insulin with carb ratio (6) History of Crohn's disease: Consult gastroenterology follow further recommendations (7) DVT prophylaxis: Lovenox subcu Subjective Patient still having increased ostomy output she is got some skin irritation of her ostomy now can persistent hypo-bulimia. I personally discussed her care with gastroneurologist team they pointed out that she is on magnesium oxide which will be held and we will add some Imodium to her cholestyramine to try to reduce her stool output. Patient still continues to feel weak especially with ambulating. Review of Systems Review of Systems: ROS: well nourished well developed appears to be in mild distress. No double vision blurry vision No problems with speech or swallowing No palpitations, chest pain or pressure No Wheezing or breathing issues No abdominal pain nausea vomiting diarrhea ostomy site externally looks good patient states that internally is getting irritated to her skin No burning urine urine frequency or changes in color No focal joint pain or muscle pain No skin rashes or oral lesions No unusual bruising or bleeding No focused back pain or numbness or loss of strength No changes in memory or confusion Physical Exam Physical Exam: The patient appeared well nourished and normally developed, She appears in mild distress Vital signs as documented. Head exam is unremarkable. normocephalic, atraumatic Neck is without jugular venous distension, thyromegaly, or lymphademopathy Lungs are clear to auscultation and percussion. Cardiac exam reveals Rhythm is regular. First and second heart sounds normal. Abdominal exam reveals normal bowel sounds, ostomy present in the mid to right side middle abdomen she has no focal tenderness no rebound no guarding Extremities are nonedematous and both pedal pulses are present Neurologic exam is A&Ox3, no focal deficits, strength is equal bilateral Psychologically seems neither anxious or depressed Skin is warm Dry without bruises or lesions Results & Data Vital Signs (Past 12 Hours) Vital Signs Temp Pulse Resp BP Pulse Ox 09/17/18 07:50 36.9 C 88 18 148/87 H 98 09/17/18 00:30 36.9 C 81 14 153/83 H 98 PG Care Time/CCT Total # of Minutes Spent Total Time Spent with Patient: Total time spent is greater than 50% in coordination of care (as documented) at patient's floor/unit and/or counseling p atient:
[2018-09-17] MEDS: LOPERAMIDE HCL 2 MG CAP PO PRN (12:32)
--- NOTE | 2018-09-17 14:47 | Gastroenterology Progress Note ---
Date of Service September 17, 2018 Assessment & Plan (1) Acute diarrhea: Most likely infectious though C-diff (-) x 2 and stool culture (-) thus far. Stool for Giardia and O&P are pending. Low fat, low fiber bland diet. Appreciate management of IV fluids, correction of electrolyte derangement per primary hospitalist. Continue Colestid 2grams BID. Mag Ox po held. Imodium Q4 prn added. MRE to r/o small bowel Crohn's. Supervising Physician Co-Signing Physician Notes I saw and evaluated the patient. She notes that her ostomy output seems to be more copious today. Given this we will do further evaluation of her symptoms with an MR enterography and try an additional medication such as Imodium. If there is evidence of stricturing disease on MR we would then try budesonide. Subjective Patient with yet more ostomy output, estimates changing the 500cc bad every 1-2 hrs around the clock. Minimal abd pain. Appetite OK. Colestid 2gram BID x 24 hrs w/o effect. Review of Systems Review of Systems: ROS: Gen: Denies weakness, fevers, weight loss Eyes: No eye redness, or pain, no recent vision changes Resp: No SOB, no cough Cardio: No palpitations/irregular beats, no chest pain GI: + increased ostomy output + periumbilical abdominal pain, +nausea/vomiting; nausea persists but is improved and vomiting has resolved since admission. : Denies pain on urination Skin: No jaundice, itching or new rashes Physical Exam Constitutional: WD/WN, vitals as above Eyes: PERRL, conjunctivae normal, anicteric sclerae ENMT: external ear and nose normal, oropharynx normal Neck: trachea midline, no thyromegaly Respiratory: normal respiratory effort, lungs clear to auscultation Cardiovascular: RRR, no murmur, no edema Gastrointestinal (Abdomen): Inspection/Auscultation: abdomen normal to inspection; abdomen not distended Percussion/Palpation: + abdomen tender (diffuse, periumbilical) and abdomen soft Skin: no rashes, warm and dry Neurologic: PERRL, EOMI, accommodation nl, no face palsy, no dysarthria Psychiatric: A+Ox3, euthymic affect Genitourinary: no vaginal lesions, no adnexal mass Lymphatic: no cervical or axillary lymphadenopathy Results & Data Vital Signs (Past 12 Hours) Vital Signs Temp Pulse Resp BP Pulse Ox 09/17/18 07:50 36.9 C 88 18 148/87 H 98
[2018-09-17] MEDS ORDERED: GADOBUTROL 65ML VIAL IV PRN (19:50)
[2018-09-17] MEDS: ENOXAPARIN INJ 40 MG/0.4 ML SYR SQ SCH (20:09)
[2018-09-18] MEDS: SODIUM CHLORIDE 0.9% 1000ML 1,000 ML IV SCH ×2 (01:40→07:27)
[2018-09-18] MEDS: FAMOTIDINE 20 MG in SYRINGE 3 ML IV SCH ×2 (05:24→17:38)
[2018-09-18] MEDS: CALCIUM 600MG + VIT D 400 IU TAB PO SCH (07:27)
[2018-09-18] MEDS: PANTOprazole 40 MG TAB PO SCH (07:28)
[2018-09-18] MEDS: POTASSIUM CHLORIDE 20 MEQ TABCR PO SCH (07:28)
[2018-09-18] MEDS: ATORVASTATIN 10 MG TAB PO SCH (07:28)
[2018-09-18] MEDS: FLUOXETINE HCL 20 MG CAP PO SCH (07:28)
[2018-09-18 07:41] LABS: Basophils # (auto) 0.04 K/uL (0-0.2); Basophils % (auto) 0.5 %; Eosinophils # (auto) 0.23 K/uL (0-0.5); Eosinophils % (auto) 2.7 %; Hematocrit (blood only) 38.3 % (37-47); Hemoglobin 12.9 g/dL (12.0-16.0); Immature Granulocytes # (auto) 0.01 K/uL (0.00-0.02); Immature Granulocytes % (auto) 0.1 %; Lymphocytes # (auto) 3.06 K/uL (1.2-3.4); Lymphocytes % (auto) 35.4 %; Mean Corpuscular Hgb Conc 33.7 g/dL (32-36); Mean Corpuscular Volume 86.8 fL (80-100); Monocytes # (auto) 0.79 K/uL (0.11-0.59); Monocytes % (auto) 9.1 %; Neutrophils # (auto) 4.52 K/uL (1.4-6.5); Neutrophils % (auto) 52.2 %; Platelet Count 357 K/uL (130-400); RDW Coefficient of Variation 14.8 % (11.5-14.5); RDW Standard Deviation 47.8 fL (36.4-46.3); Red Blood Count 4.41 M/uL (4.2-5.4); White Blood Count 8.65 K/uL (4.8-10.8)
[2018-09-18 08:19] LABS: BUN Creatinine Ratio 5.8 (10-20); Creatinine Clr Calc Pharmacy 83.4 ml/min; Est GFR (African American) 114.7; Potassium 3.3 mmol/L (3.5-5.1)
[2018-09-18] MEDS: INSULIN GLARGINE SOLOSTAR 100 UNITS/ML 3 ML PEN SQ SCH (09:06)
[2018-09-18] MEDS: COLESTIPOL HCL 1 GM TAB PO SCH ×2 (09:06→21:50)
[2018-09-18] MEDS: INSULIN ASPART 100 UNITS/ML 3 ML PEN SC SCH ×4 (09:40→21:03)
[2018-09-18] MEDS: LOPERAMIDE HCL 2 MG CAP PO PRN (10:31)
[2018-09-18] MEDS: ONDANSETRON INJ 2 MG/ML 2 ML VIAL IV PRN (11:48)
--- NOTE | 2018-09-18 12:10 | Gastroenterology Progress Note ---
Date of Service September 18, 2018 Assessment & Plan (1) Acute diarrhea: Most likely infectious though C-diff (-) x 2 and stool culture (-) thus far. Stool for Giardia and O&P are pending. Low fat, low fiber bland diet. Appreciate management of IV fluids, correction of electrolyte derangement per primary hospitalist. Will review MRE results when available (to r/o small bowel Crohn's). Meds: Continue Colestid 2grams BID. Mag Ox po held. Imodium Q4 changed to scheduled. Nurses - please measure I&). Order placed. Supervising Physician Co-Signing Physician Notes I saw and evaluated the patient. She notes that her output continues to be elevated. We did try Imodium however this appears to been ineffective. Of note her MRI did not show any evidence of stricturing disease within the small intestine. Recommendations Lomotile twice daily If output improves tomorrow she may be discharged Subjective Patient states output, "maybe a little less; there were two times when she changed only every 3 hrs." 500cc bags. No abd pain. K 3.3 today. Meds: Continues Colestid 2 gm BID. Imodium ordered yesterday, however, she had forgotten to ask for Imodium (was prn) Records show she only received it once yesterday mid day - then again this morning at 1030 when I asked the nurse to administer during my rounds. Review of Systems Review of Systems: ROS: Gen: Denies weakness, fevers, weight loss Eyes: No eye redness, or pain, no recent vision changes Resp: No SOB, no cough Cardio: No palpitations/irregular beats, no chest pain GI: + increased ostomy output no abdominal pain, nausea improved, no vomiting since admission. : Denies pain on urination Skin: No jaundice, itching or new rashes Physical Exam Constitutional: WD/WN, vitals as above Eyes: PERRL, conjunctivae normal, anicteric sclerae ENMT: external ear and nose normal, oropharynx normal Neck: trachea midline, no thyromegaly Respiratory: normal respiratory effort, lungs clear to auscultation Cardiovascular: RRR, no murmur, no edema Gastrointestinal (Abdomen): Inspection/Auscultation: abdomen normal to inspection; abdomen not distended Percussion/Palpation: abdomen soft; abdomen nontender Ostomy bag draining clear brown liquid. Skin: no rashes, warm and dry Neurologic: PERRL, EOMI, accommodation nl, no face palsy, no dysarthria Psychiatric: A+Ox3, euthymic affect Genitourinary: no vaginal lesions, no adnexal mass Lymphatic: no cervical or axillary lymphadenopathy Results & Data Vital Signs (Past 12 Hours) Vital Signs Temp Pulse Resp BP Pulse Ox 09/18/18 07:29 36.8 C 89 18 148/86 H 99 Diagnostic Findings MRE films uploaded but not yet interpreted.
[2018-09-18] MEDS: LOPERAMIDE HCL 2 MG CAP PO SCH ×2 (12:17→16:17)
--- NOTE | 2018-09-18 13:03 | Magnetic Resonance Report ---
MR ENTEROGRAPHY CLINICAL HISTORY: Crohn's colitis. Assess for small bowel disease. History of colostomy. COMPARISON STUDY: Abdominal CT dated 09/13/2018. TECHNIQUE: MR enterography is performed utilizing various T1 and T2-weighted sequences in the axial a nd coronal planes. Contrast-enhanced sequences are acquired following the IV administration of 7 cc o f Gadavist. Intramuscular glucagon was administered for this procedure. Dynamic coronal imaging was r eviewed on an independent [employer] workstation. FINDINGS: There is postoperative change from subtotal proctocolectomy with right lower quadrant colostomy. The cecum is located in the pelvis. No bowel obstruction is identified. The small bowel loops are normal in appearance. No small bowel wall thickening or mucosal hyperemia is identified on the postcontrast sequences. The distal/terminal ileum are normal in appearance. Normal peristaltic motion is seen on t he postcontrast sequences. There is no evidence of fistula or abscess. The gallbladder is surgically absent. The liver, adrenal glands, kidneys, and pancreas are grossly no rmal. The spleen appears lobulated and irregular with foci of susceptibility artifact. There is no ab dominal ascites. No pleural effusion is seen. The abdominal aorta is normal in caliber. Prominent mes enteric lymph nodes are unchanged and likely reactive. No pathologically enlarged lymph nodes are see n In the abdomen or pelvis. The bladder, uterus, and adnexa are normal as visualized. The bony struct ures are normal as imaged. IMPRESSION: 1. There are postoperative changes from subtotal proctocolectomy with right lower quadrant colostomy. 2. No bowel obstruction is seen. 3. No abnormal loops of small bowel are identified. Dictated: 09/17/2018 9:55 PM Transcribed: 09/18/2018 7:01 AM Gwen [id number] [email or web address]_[email or web address] Electronically signed by: Juan Black M.D. 09/18/2018 1:02 PM
[2018-09-18] MEDS: NORMOSOL-R 1,000 ML IV SCH ×2 (13:06→19:33)
--- NOTE | 2018-09-18 17:14 | Hospitalist Progress Note ---
Date of Service September 18, 2018 Assessment & Plan (1) Acute gastroenteritis: Continues tolerating advancement of diet, slightly reduced amount of ostomy output, will continue intravenous fluids changed to Normosol to avoid chloride load. Pepcid and PPI therapy. Repeat stool cultures have been negative so far. Giardia test pending. Repeat C. difficile test negative, GI medicine continues to follow she has some improvement after adding immodium Hypokalemia persists continue oral augmentation (2) Volume depletion: Subjectively continues to feel improved, continue hydration, still without frequent urination or clear urine, improved lightheadedness (3) Acute renal insufficiency: Resolved, adding lisinopril back (4) Hyponatremia: Resolved (5) Type 2 diabetes mellitus: Basal bolus insulin with carb ratio (6) History of Crohn's disease: Consult gastroenterology follow further recommendations (7) DVT prophylaxis: Lovenox subcu Subjective Patient is some improvement of her ostomy output she is resolution of her lightheadedness still having very little urinary frequency however, MRI enterography revealing Review of Systems Review of Systems: ROS: well nourished well developed. No double vision blurry vision No problems with speech or swallowing No palpitations, chest pain or pressure No Wheezing or breathing issues No abdominal pain nausea vomiting persistent increased ostomy output and weakness No burning urine urine frequency or changes in color No focal joint pain or muscle pain No skin rashes or oral lesions No unusual bruising or bleeding No focused back pain or numbness or loss of strength No changes in memory or confusion Physical Exam Physical Exam: The patient appeared well nourished and in mild to moderate distress Vital signs as documented. Head exam is unremarkable. normocephalic, atraumatic Neck is without jugular venous distension, thyromegaly, or lymphademopathy Lungs are clear to auscultation and percussion. Cardiac exam reveals Rhythm is regular. First and second heart sounds normal. Abdominal exam reveals normal bowel sounds, no masses, no organomegaly ostomy is fairly full Extremities are nonedematous and both pedal pulses are present Neurologic exam is A&Ox3, no focal deficits, strength is equal bilateral Psychologically seems neither anxious or depressed Skin is warm Dry without bruises or lesions Results & Data Vital Signs (Past 12 Hours) Vital Signs Temp Pulse Resp BP Pulse Ox 09/18/18 16:22 36.7 C 85 18 139/84 99 09/18/18 07:29 36.8 C 89 18 148/86 H 99 PG Care Time/CCT Total # of Minutes Spent Total Time Spent with Patient: Total time spent is greater than 50% in coordination of care (as documented) at patient's floor/unit and/or counseling patient:
[2018-09-18] MEDS: DIPHENOXYLATE/ATROPINE 2.5/0.025MG TAB PO SCH (20:28)
[2018-09-18] MEDS: ENOXAPARIN INJ 40 MG/0.4 ML SYR SQ SCH (20:30)
[2018-09-19] MEDS: NORMOSOL-R 1,000 ML IV SCH ×5 (00:56→22:13)
[2018-09-19] MEDS: FAMOTIDINE 20 MG in SYRINGE 3 ML IV SCH ×2 (05:30→18:04)
[2018-09-19] MEDS: ONDANSETRON INJ 2 MG/ML 2 ML VIAL IV PRN ×2 (08:13→14:22)
[2018-09-19] MEDS: LISINOPRIL 5 MG TAB PO SCH (08:19)
[2018-09-19] MEDS: FLUOXETINE HCL 20 MG CAP PO SCH (08:19)
[2018-09-19] MEDS: DIPHENOXYLATE/ATROPINE 2.5/0.025MG TAB PO SCH ×2 (08:20→20:34)
[2018-09-19] MEDS: PANTOprazole 40 MG TAB PO SCH (08:20)
[2018-09-19] MEDS: ATORVASTATIN 10 MG TAB PO SCH (08:20)
[2018-09-19] MEDS: CALCIUM 600MG + VIT D 400 IU TAB PO SCH (08:20)
[2018-09-19] MEDS: INSULIN ASPART 100 UNITS/ML 3 ML PEN SC SCH ×4 (08:37→20:35)
[2018-09-19] MEDS: INSULIN GLARGINE SOLOSTAR 100 UNITS/ML 3 ML PEN SQ SCH (08:37)
[2018-09-19] MEDS ORDERED: BISMUTH SUBSALICYLATE LIQD 236 ML PO ONE ×2 (09:45)
[2018-09-19] MEDS: POTASSIUM CHLORIDE 20 MEQ TABCR PO SCH ×2 (10:23→20:34)
[2018-09-19] MEDS: COLESTIPOL HCL 1 GM TAB PO SCH ×2 (10:27→22:13)
--- NOTE | 2018-09-19 17:28 | Hospitalist Progress Note ---
Date of Service September 19, 2018 Assessment & Plan (1) Acute gastroenteritis: Continues tolerating advancement of diet, slightly reduced amount of ostomy output, will continue intravenous fluids changed to Normosol to avoid chloride load. Pepcid and PPI therapy. Repeat stool cultures have been negative so far. Giardia test pending. Repeat C. difficile test negative, GI medicine continues to follow she has some improvement after adding Lomotil Imodium and bismuth Hypokalemia persists continue oral augmentation next check 09/20 (2) Volume depletion: Subjectively continues to feel improved, continue hydration, still without frequent urination or clear urine, continues with improved lightheadedness (3) Acute renal insufficiency: Remains resolved, adding lisinopril back (4) Hyponatremia: Remains resolved (5) Type 2 diabetes mellitus: Basal bolus insulin with carb ratio acceptable control (6) History of Crohn's disease: MR enterography shows evidence of inflammatory bowel changes in the small bowel (7) DVT prophylaxis: Lovenox subcu Subjective Patient with persistent diarrhea and increased ileostomy output less cramping less dizziness urine output is still modest Review of Systems Review of Systems: ROS: well nourished well developed. No double vision blurry vision No problems with speech or swallowing No palpitations, chest pain or pressure No Wheezing or breathing issues Vague abdominal pain and bloating No burning urine urine frequency or changes in color No focal joint pain or muscle pain No skin rashes or oral lesions No unusual bruising or bleeding No focused back pain or numbness or loss of strength generally feels weak No changes in memory or confusion Physical Exam Physical Exam: The patient appeared well nourished and normally developed. He is in mild distress Vital signs as documented. Head exam is unremarkable. normocephalic, atraumatic Neck is without jugular venous distension, thyromegaly, or lymphademopathy Lungs are clear to auscultation and percussion. Cardiac exam reveals Rhythm is regular. No murmurs are heard Abdominal exam reveals hyperactive bowel sounds, no masses, no organomegaly, nontender Extremities are nonedematous and both pedal pulses are present Neurologic exam is A&Ox3, no focal deficits, strength is equal bilateral Psychologically seems neither anxious or depressed Skin is warm Dry Results & Data Vital Signs (Past 12 Hours) Vital Signs Temp Pulse Resp BP Pulse Ox 09/19/18 15:44 36.7 C 89 18 132/84 97 09/19/18 07:33 37.0 C 93 H 18 135/84 97 PG Care Time/CCT Total # of Minutes Spent Total Time Spent with Patient: Total time spent is greater than 50% in coordination of care (as documented) at patient's floor/unit and/or counseling patient:
[2018-09-19] MEDS: BISMUTH SUBSALICYLATE SUSP PO PRN (18:04)
[2018-09-19] MEDS: ENOXAPARIN INJ 40 MG/0.4 ML SYR SQ SCH (20:35)
[2018-09-19] MEDS: LOPERAMIDE HCL 2 MG CAP PO SCH (20:35)
[2018-09-20] MEDS: NORMOSOL-R 1,000 ML IV SCH ×4 (04:00→19:46)
[2018-09-20] MEDS: FAMOTIDINE 20 MG in SYRINGE 3 ML IV SCH ×2 (05:57→18:31)
[2018-09-20] MEDS: FLUOXETINE HCL 20 MG CAP PO SCH (07:50)
[2018-09-20] MEDS: LISINOPRIL 5 MG TAB PO SCH (07:51)
[2018-09-20] MEDS: DIPHENOXYLATE/ATROPINE 2.5/0.025MG TAB PO SCH ×2 (07:51→20:47)
[2018-09-20] MEDS: CALCIUM 600MG + VIT D 400 IU TAB PO SCH (07:51)
[2018-09-20] MEDS: PANTOprazole 40 MG TAB PO SCH (07:52)
[2018-09-20] MEDS: POTASSIUM CHLORIDE 20 MEQ TABCR PO SCH (07:52)
[2018-09-20] MEDS: ATORVASTATIN 10 MG TAB PO SCH (07:52)
[2018-09-20] MEDS: LOPERAMIDE HCL 2 MG CAP PO SCH ×2 (07:56→20:47)
[2018-09-20] MEDS: BISMUTH SUBSALICYLATE SUSP PO PRN (07:56)
[2018-09-20] MEDS: COLESTIPOL HCL 1 GM TAB PO SCH ×2 (09:39→21:48)
[2018-09-20] MEDS: INSULIN ASPART 100 UNITS/ML 3 ML PEN SC SCH ×4 (10:24→20:42)
[2018-09-20] MEDS: INSULIN GLARGINE SOLOSTAR 100 UNITS/ML 3 ML PEN SQ SCH (10:24)
[2018-09-20 12:12] LABS: Hematocrit (blood only) 37.3 % (37-47); Hemoglobin 12.9 g/dL (12.0-16.0); Mean Corpuscular Hgb Conc 34.6 g/dL (32-36); Mean Corpuscular Volume 83.4 fL (80-100); Platelet Count 371 K/uL (130-400); RDW Coefficient of Variation 14.8 % (11.5-14.5); RDW Standard Deviation 45.5 fL (36.4-46.3); Red Blood Count 4.47 M/uL (4.2-5.4); White Blood Count 8.59 K/uL (4.8-10.8)
[2018-09-20 12:37] LABS: BUN Creatinine Ratio 3.1 (10-20); Calcium 8.1 mg/dl (8.5-10.1); Creatinine Clr Calc Pharmacy 75.5 ml/min; Est GFR (African American) 105.7; Est GFR (Non-African American) 91.2; Magnesium 2.1 mg/dl (1.8-2.4); Potassium 3.8 mmol/L (3.5-5.1)
--- NOTE | 2018-09-20 14:10 | Hospitalist Progress Note ---
Date of Service September 20, 2018 Assessment & Plan (1) Acute gastroenteritis: Continues tolerating advancement of diet, slightly reduced amount of ostomy output, will continue intravenous fluids changed to Normosol to avoid chloride load. Pepcid and PPI therapy. Repeat stool cultures have been negative so far. Giardia test pending. Repeat C. difficile test negative, GI medicine follows she has some improvement after adding Lomotil Imodium and bismuth (2) Volume depletion: Seemingly have a subjectively bad day 09/20 continue hydration, still without frequent urination or clear urine, continues with improved lightheadedness (3) Acute renal insufficiency: Tolerating addition of lisinopril stable (4) Hyponatremia: Remains resolved (5) Type 2 diabetes mellitus: Basal bolus insulin with carb ratio acceptable control in the 100 range (6) History of Crohn's disease: MR enterography shows evidence of inflammatory bowel changes in the small bowel (7) DVT prophylaxis: Lovenox subcu Subjective Patient is having enough day today we rechecked her labs she is not having any persistent hyper hypokalemia hypomagnesemia and the remainder of her blood counts are stable. Her output of her ostomy is somewhat improving but she is on maximum therapy at this time Review of Systems Review of Systems: ROS: well nourished well developed. Seems more fatigued today No double vision blurry vision No problems with speech or swallowing No palpitations, chest pain or pressure No Wheezing or breathing issues No abdominal pain nausea vomiting increased ostomy output persists No burning urine urine frequency or changes in color No focal joint pain or muscle pain No skin rashes or oral lesions No unusual bruising or bleeding No focused back pain or numbness or loss of strength No changes in memory or confusion Physical Exam Physical Exam: The patient appeared well nourished and normally developed. She is in mild distress just does not feel well today plus / minus oral intake Vital signs as documented. Head exam is unremarkable. normocephalic, atraumatic Neck is without jugular venous distension, thyromegaly, or lymphademopathy Lungs are clear to auscultation and percussion. Cardiac exam reveals Rhythm is regular. First and second heart sounds normal. Abdominal exam reveals normal bowel sounds, no masses, no organomegaly Extremities are nonedematous and both pedal pulses are present Neurologic exam is A&Ox3, no focal deficits, strength is equal bilateral Psychologically seems neither anxious or depressed Skin is warm Dry Results & Data Vital Signs (Past 12 Hours) Vital Signs Temp Pulse Resp BP Pulse Ox 09/20/18 08:54 36.8 C 90 18 123/79 96 PG Care Time/CCT Total # of Minutes Spent Total Time Spent with Patient: Total time spent is greater than 50% in coordination of care (as documented) at patient's floor/unit and/or counseling patient:
[2018-09-20] MEDS: ENOXAPARIN INJ 40 MG/0.4 ML SYR SQ SCH (20:42)
[2018-09-20] MEDS: BISMUTH SUBSALICYLATE SUSP PO SCH (20:47)
[2018-09-20] MEDS: ONDANSETRON INJ 2 MG/ML 2 ML VIAL IV PRN (22:21)
[2018-09-21] MEDS: NORMOSOL-R 1,000 ML IV SCH ×2 (01:29→07:15)
[2018-09-21] MEDS: FAMOTIDINE 20 MG in SYRINGE 3 ML IV SCH ×2 (06:00→18:26)
[2018-09-21] MEDS: LISINOPRIL 5 MG TAB PO SCH (08:08)
[2018-09-21] MEDS: ATORVASTATIN 10 MG TAB PO SCH (08:08)
[2018-09-21] MEDS: CALCIUM 600MG + VIT D 400 IU TAB PO SCH (08:08)
[2018-09-21] MEDS: PANTOprazole 40 MG TAB PO SCH (08:08)
[2018-09-21] MEDS: DIPHENOXYLATE/ATROPINE 2.5/0.025MG TAB PO SCH ×2 (08:08→21:48)
[2018-09-21] MEDS: FLUOXETINE HCL 20 MG CAP PO SCH (08:08)
[2018-09-21] MEDS: INSULIN ASPART 100 UNITS/ML 3 ML PEN SC SCH ×4 (08:09→22:38)
[2018-09-21] MEDS: LOPERAMIDE HCL 2 MG CAP PO SCH ×2 (08:11→21:52)
[2018-09-21] MEDS: INSULIN GLARGINE SOLOSTAR 100 UNITS/ML 3 ML PEN SQ SCH (08:11)
[2018-09-21] MEDS: COLESTIPOL HCL 1 GM TAB PO SCH (10:17)
[2018-09-21] MEDS: BISMUTH SUBSALICYLATE SUSP PO SCH ×2 (10:18→21:47)
[2018-09-21] MEDS: ONDANSETRON INJ 2 MG/ML 2 ML VIAL IV PRN ×2 (10:20→16:02)
--- NOTE | 2018-09-21 12:44 | Hospitalist Progress Note ---
Date of Service September 21, 2018 Assessment & Plan (1) Acute gastroenteritis: Continues tolerating advancement of diet, slightly reduced amount of ostomy output, will continue intravenous fluids changed to Normosol to avoid chloride load. Pepcid and PPI therapy. Repeat stool cultures have been negative so far. Giardia test pending. Repeat C. difficile test negative, GI medicine wishes to add Xifaxan to her previous diarrheal agents of Lomotil Imodium and bismuth, and hopes that she has some bacterial overgrowth which may be inhibiting absorption. Another consideration would be to add a fiber agent to absorb liquid however the patient had intolerance to fiber agents in the past (2) Volume depletion: Patient seems fully hydrated and requests stopping IV fluids at this point time (3) Acute renal insufficiency: Has resolved, now tolerating addition of lisinopril (4) Hyponatremia: Remains resolved (5) Type 2 diabetes mellitus: Basal bolus insulin with carb ratio acceptable control in the 100 range (6) History of Crohn's disease: MR enterography shows evidence of inflammatory bowel changes in the small bowel (7) DVT prophylaxis: Lovenox subcu Subjective this pt is still having significant ileostomy output, she has fatigue and some abdominal bloating I personally spoke to GI medicine and they wish to treat for bacterial overgrowth to see if she is having a absorption problem Review of Systems Review of Systems: ROS: well nourished well developed. Overall feels weak tired and fatigued No double vision blurry vision No problems with speech or swallowing No palpitations, chest pain or pressure No Wheezing or breathing issues Abdominal bloating distention and increased ostomy output no significant focal pain No burning urine urine frequency or changes in color No focal joint pain or muscle pain No skin rashes or oral lesions No unusual bruising or bleeding No focused back pain or numbness or loss of strength No changes in memory or confusion Physical Exam Physical Exam: The patient appeared well nourished and normally developed. Looks fatigued Vital signs as documented. Head exam is unremarkable. normocephalic, atraumatic Neck is without jugular venous distension, thyromegaly, or lymphademopathy Lungs are clear to auscultation and percussion. Cardiac exam reveals Rhythm is regular. First and second heart sounds normal. Abdominal exam reveals normal bowel sounds, soft no focal tenderness no rebound ostomy still with significant output Extremities are nonedematous and both pedal pulses are present Neurologic exam is A&Ox3, no focal deficits, strength is equal bilateral Psychologically seems neither anxious or depressed Skin is warm Dry without bruises or lesions Results & Data Vital Signs (Past 12 Hours) Vital Signs Temp Pulse Resp BP Pulse Ox 09/21/18 07:25 36.9 C 91 H 18 116/73 98 PG Care Time/CCT Total # of Minutes Spent Total Time Spent with Patient: Total time spent is greater than 50% in coordination of care (as documented) at patient's floor/unit and/or counseling patient:
[2018-09-21] MEDS: RIFAXIMIN 550 MG TABLET PO SCH ×2 (13:33→21:49)
--- NOTE | 2018-09-21 14:37 | Gastroenterology Progress Note ---
Date of Service September 21, 2018 Assessment & Plan (1) Acute diarrhea: Possibly infectious source, though C-diff (-) x 2 and stool culture (-) thus far. Stool for Giardia and O&P are pending. Additional consideration would be bacterial overgrowth. Primary team to start rifaximin. Continue otherwise as current. Supportive care. (2) History of Crohn's disease: Plan as above. [facility] Supervising Physician Co-Signing Physician Notes I saw and evaluated the patient with Kd Rubio PA-C whose note reflects our findings and plan. Complicated IBD on Entyvio. Recent (June) revision of her ostomy). Admitted now with 12 days of diarrhea. Came on suddenly and preceeded by 1-2 days of vomiting. Suspicious for infectious/viral cause. Watery stool persists. Output remains much more than usual. C diff negative x 2. Stool culture and O&P negative. On a variety of meds including cholestyramine, imodium and pepto and lomotil and still emptying her ostomy frequently. Frustrated. Tearful. Of note her MRI did not show any evidence of stricturing disease within the small intestine. Recommendations - Though presentation highly suggestive of acute infectious cause, SiBO may also be a possibility given her lack of response to the current regimen. If no improvement through the day today, would consider an empiric course of Xifaxan for SiBO. - Will need outpatient f/u with following discharge. Subjective Patient with a hx of Crohn's/on Entyvio, s/p ileostomy with recent revision in June and unremarkable colonoscopy prior to that in April, admitted with gastroenteritis - high ostomy output. She is currently taking Colestid, 2 tablets BID, Pepto bismol liquid BID, Imodium BID and Lomotil BID, but still having significant liquid output. No BRB. Stool is dark but not black. States she emptied her ostomy bag about 10 times yesterday, and 3 so far today. Reports abdominal discomfort, but no significant pain. Nausea without emesis. Stool tested negative for enteric pathogens and Cdiff. O&P still pending. Possible viral etiology as well. Patient is afebrile. Review of Systems Constitutional: no fever, no chills and no fatigue Eyes: no eye pain and no worsening vision Ear, Nose, Mouth, Throat: no ear pain, no hearing loss, no nasal congestion and no sore throat Respiratory: no cough, no chest congestion and no wheezing Cardiovascular: no chest pain and no dyspnea Gastrointestinal: as per Subjective / HPI Genitourinary: no dysuria and no urinary incontinence Musculoskeletal: no joint pain Integumentary: no rash and no pruritus Neurologic: no tingling, no numbness and no dizziness Psychiatric: no suicidal ideation and no confusion Endocrine: no cold intolerance and no heat intolerance Hematologic / Lymphatic: no easy bleeding and no easy bruising Allergy / Immunological: no problem reported Physical Exam Constitutional: WD/WN, vitals as above no acute distress Eyes: + anicteric sclerae ENMT: external ear and nose normal, oropharynx normal Neck: normal visual inspection Respiratory: normal respiratory effort, lungs clear to auscultation Cardiovascular: Rate/Rhythm: regular rate and regular rhythm Heart Sounds: no murmur Gastrointestinal (Abdomen): normal bowel sounds, soft, nontender, no hepatosplenomegaly ostomy in place, right side Musculoskeletal: Head/Neck/Chest: normocephalic and head atraumatic Skin: no rashes, warm and dry Neurologic: moves all extremities; no focal motor deficits Psychiatric: Orientation: alert and oriented x 3 Results & Data Vital Signs (Past 12 Hours) Vital Signs Temp Pulse Resp BP Pulse Ox 09/21/18 07:25 36.9 C 91 H 18 116/73 98 Laboratory Results - last 24 hr 09/20/18 09/20/18 09/21/18 16:55 20:19 07:57 POC Glucose 105 H 112 H 95 09/21/18 11:40 POC Glucose 101 H Procedure/Result Escherichia coli Shiga Toxins Test - Final Stool Culture - Final No Salmonella isolated, No Shigella isolated, No Campylobacter jejuni isolated.
[2018-09-21] MEDS: ENOXAPARIN INJ 40 MG/0.4 ML SYR SQ SCH (21:46)
[2018-09-22] MEDS: COLESTIPOL HCL 1 GM TAB PO SCH ×3 (00:02→21:53)
[2018-09-22] MEDS: FAMOTIDINE 20 MG in SYRINGE 3 ML IV SCH ×2 (06:19→17:38)
[2018-09-22 07:18] LABS: BUN Creatinine Ratio 11.7 (10-20); Calcium 8.4 mg/dl (8.5-10.1); Est GFR (African American) 115.8; Est GFR (Non-African American) 99.9; Potassium 2.8 mmol/L (3.5-5.1)
[2018-09-22] MEDS: POTASSIUM CHLORIDE / WTR 10 MEQ/100 ML PLCT IV SCH ×4 (08:02→11:27)
[2018-09-22] MEDS: LISINOPRIL 5 MG TAB PO SCH (08:05)
[2018-09-22] MEDS: ATORVASTATIN 10 MG TAB PO SCH (08:05)
[2018-09-22] MEDS: FLUOXETINE HCL 20 MG CAP PO SCH (08:05)
[2018-09-22] MEDS: DIPHENOXYLATE/ATROPINE 2.5/0.025MG TAB PO SCH ×2 (08:06→20:24)
[2018-09-22] MEDS: RIFAXIMIN 550 MG TABLET PO SCH ×2 (08:06→20:19)
[2018-09-22] MEDS: CALCIUM 600MG + VIT D 400 IU TAB PO SCH (08:06)
[2018-09-22] MEDS: PANTOprazole 40 MG TAB PO SCH (08:06)
[2018-09-22] MEDS: INSULIN ASPART 100 UNITS/ML 3 ML PEN SC SCH ×4 (08:07→20:22)
[2018-09-22] MEDS: INSULIN GLARGINE SOLOSTAR 100 UNITS/ML 3 ML PEN SQ SCH (08:10)
[2018-09-22] MEDS: LOPERAMIDE HCL 2 MG CAP PO SCH ×2 (08:13→20:33)
[2018-09-22] MEDS: POTASSIUM CHLORIDE 10 MEQ TABCR PO SCH ×3 (08:35→20:24)
[2018-09-22] MEDS: ONDANSETRON INJ 2 MG/ML 2 ML VIAL IV PRN ×3 (09:14→21:56)
[2018-09-22] MEDS: BISMUTH SUBSALICYLATE SUSP PO SCH ×2 (10:59→20:23)
--- NOTE | 2018-09-22 11:49 | Hospitalist Progress Note ---
Date of Service September 22, 2018 Assessment & Plan (1) Acute gastroenteritis: This appears to be secondary to bacterial overgrowth as her symptoms have improved. will cotninue xifaxan. Continues tolerating advancement of diet, slightly reduced amount of ostomy output, will continue intravenous fluids changed to Normosol to avoid chloride load. Pepcid and PPI therapy. Repeat stool cultures have been negative so far. Giardia test pending. Repeat C. difficile test negative, will continue previous diarrheal agents of Lomotil Imodium and bismuth (2) Volume depletion: Improved. Hypokalemia. Will replenish today. Level was below 3. Ordered potasium oral and IV. will recheck in AM. (3) Acute renal insufficiency: Has resolved, now tolerating addition of lisinopril (4) Hyponatremia: Remains resolved (5) Type 2 diabetes mellitus: Basal bolus insulin with carb ratio acceptable control in the 100 range (6) History of Crohn's disease: MR enterography shows evidence of inflammatory bowel changes in the small bowel (7) [facility] minutes in management of patient. Subjective 57 yo female reports feeling better. She reports that her stools have decreased in amount, but remain loose. Patient denies any other symptoms. Review of Systems Review of Systems: All systems reviewed & are unremarkable except as noted in HPI & below Physical Exam Physical Exam: The patient appeared well nourished and normally developed. Vital signs as documented. Head exam is unremarkable. normocephalic, atraumatic Neck is without jugular venous distension, thyromegaly, or lymphademopathy Lungs are clear to auscultation and percussion. Cardiac exam reveals Rhythm is regular. First and second heart sounds normal. Abdominal exam reveals normal bowel sounds, soft no focal tenderness no rebound ostomy bag noted. Extremities are nonedematous and both pedal pulses are present Neurologic exam is A&Ox3, no focal deficits, strength is equal bilateral Psychologically seems neither anxious or depressed Skin is warm Dry without bruises or lesions Results & Data Vital Signs (Past 12 Hours) Vital Signs Temp Pulse Resp BP Pulse Ox 09/22/18 07:06 36.7 C 81 18 138/80 97 PG Care Time/CCT Total # of Minutes Spent Total Time Spent with Patient: Total time spent is greater than 50% in coordination of care (as documented) at patient's floor/unit and/or counseling patient:
--- NOTE | 2018-09-22 16:06 | Gastroenterology Progress Note ---
Date of Service September 22, 2018 Assessment & Plan (1) Acute diarrhea: Awaiting O&P. Would continue 10-14 day course of Rifaximin. OP follow up with Dr. Araya. (2) History of Crohn's disease: Plan as above. On Entyvio Supervising Physician Co-Signing Physician Notes Late entry: Patient was seen and examined on 09/22 with Kd Rubio PA-C whose note reflect sour findings and plan. Subjective Patient with much less output today. She has been started on Xifaxan for possible bacterial overgrowth. Denies any abdominal pain, n/v. Does report some abdominal gas/bloating. Low potassium of 2.8 today but this is being corrected. Labs otherwise unremarkable. O&P still pending. Review of Systems Constitutional: no fever, no chills, no fatigue and no weight loss Eyes: no eye pain and no worsening vision Ear, Nose, Mouth, Throat: no ear pain, no hearing loss, no nasal congestion and no sore throat Respiratory: no cough, no chest congestion and no wheezing Cardiovascular: no chest pain and no dyspnea Gastrointestinal: as per Subjective / HPI Genitourinary: no dysuria and no urinary incontinence Musculoskeletal: no joint pain Integumentary: no rash and no pruritus Neurologic: no tingling, no numbness and no dizziness Psychiatric: no suicidal ideation and no confusion Endocrine: no cold intolerance and no heat intolerance Hematologic / Lymphatic: no easy bleeding and no easy bruising Allergy / Immunological: no problem reported Physical Exam Constitutional: WD/WN, vitals as above healthy appearing; no acute distress Eyes: + anicteric sclerae ENMT: external ear and nose normal, oropharynx normal Neck: normal visual inspection Respiratory: normal respiratory effort, lungs clear to auscultation Cardiovascular: Rate/Rhythm: regular rhythm and + tachycardic Heart Sounds: no murmur Gastrointestinal (Abdomen): normal bowel sounds, soft, nontender, no hepatosplenomegaly Musculoskeletal: Head/Neck/Chest: normocephalic and head atraumatic Skin: no rashes, warm and dry Neurologic: moves all extremities; no focal motor deficits Psychiatric: Orientation: alert and oriented x 3 Results & Data Vital Signs (Past 12 Hours) Vital Signs Temp Pulse Pulse Resp BP BP Pulse Ox 09/22/18 15:37 36.5 C 122 H 18 126/84 96 09/22/18 07:06 36.7 C 81 18 138/80 97 Laboratory Results - last 24 hr 09/21/18 09/21/18 09/22/18 16:55 20:43 06:21 Sodium 137 Potassium 2.8 L D Chloride 102 Carbon Dioxide 26 Anion Gap 9.0 BUN 8 D Creatinine 0.65 Est Cr Clr Drug Dosing 86.0 Est GFR ( Amer) 115.8 Est GFR (Non-Af Amer) 99.9 BUN/Creatinine Ratio 11.7 Glucose 96 POC Glucose 103 H 112 H Calcium 8.4 L 09/22/18 09/22/18 09/22/18 08:04 12:00 15:30 Sodium Potassium Chloride Carbon Dioxide Anion Gap BUN Creatinine Est Cr Clr Drug Dosing Est GFR ( Amer) Est GFR (Non-Af Amer) BUN/Creatinine Ratio Glucose POC Glucose 91 107 H 91 Calcium
[2018-09-22] MEDS: ENOXAPARIN INJ 40 MG/0.4 ML SYR SQ SCH (20:20)
[2018-09-22] MEDS: ACETAMINOPHEN 325 MG TAB PO PRN (21:55)
[2018-09-23] MEDS: FAMOTIDINE 20 MG in SYRINGE 3 ML IV SCH (06:14)
[2018-09-23 06:30] LABS: BUN Creatinine Ratio 13.1 (10-20); Calcium 8.5 mg/dl (8.5-10.1); Creatinine Clr Calc Pharmacy 69.9 ml/min; Est GFR (African American) 96.2; Potassium 3.6 mmol/L (3.5-5.1)
[2018-09-23] MEDS: CALCIUM 600MG + VIT D 400 IU TAB PO SCH (08:08)
[2018-09-23] MEDS: POTASSIUM CHLORIDE 10 MEQ TABCR PO SCH (08:08)
[2018-09-23] MEDS: DIPHENOXYLATE/ATROPINE 2.5/0.025MG TAB PO SCH (08:08)
[2018-09-23] MEDS: FLUOXETINE HCL 20 MG CAP PO SCH (08:08)
[2018-09-23] MEDS: LISINOPRIL 5 MG TAB PO SCH (08:09)
[2018-09-23] MEDS: RIFAXIMIN 550 MG TABLET PO SCH ×2 (08:09→16:28)
[2018-09-23] MEDS: PANTOprazole 40 MG TAB PO SCH (08:09)
[2018-09-23] MEDS: ATORVASTATIN 10 MG TAB PO SCH (08:09)
[2018-09-23] MEDS: LOPERAMIDE HCL 2 MG CAP PO SCH (08:15)
[2018-09-23] MEDS: INSULIN ASPART 100 UNITS/ML 3 ML PEN SC SCH ×2 (08:41→12:45)
[2018-09-23] MEDS: INSULIN GLARGINE SOLOSTAR 100 UNITS/ML 3 ML PEN SQ SCH (08:42)
[2018-09-23] MEDS ORDERED: MICONAZOLE NITRATE POWDER 43 GM ONE (09:03)
[2018-09-23] MEDS: COLESTIPOL HCL 1 GM TAB PO SCH (10:28)
[2018-09-23] MEDS: BISMUTH SUBSALICYLATE SUSP PO SCH (10:30)
[2018-09-23] MEDS: ACETAMINOPHEN 325 MG TAB PO PRN (12:52)
--- NOTE | 2018-09-23 13:15 | Gastroenterology Progress Note ---
Date of Service September 23, 2018 Assessment & Plan (1) Acute diarrhea: Still awaiting O&P results. Would continue 10-14 day course of Rifaximin. OP follow up with Dr. Araya. (2) History of Crohn's disease: as above/on Entyvio Supervising Physician Co-Signing Physician Notes I have seen and examined the patient with Kd Rubio PA-C whose note reflects our findings and plan. Overall improving since the addition of the Xifaxan. Would advocate for D/C planning and outpatient f/u with Dr. Araya. OK to continue the PRN use of imodium, cholestyramine, etc. Please call with questions. Subjective Patient continues to feel well. Ostomy output picked up a little last night but this morning it has slowed again. No BRB or melena. Generally feels better. Mild nausea without emesis. No abdominal pain. Labs unremarkable. Review of Systems Constitutional: no fever, no chills, no fatigue and no weight loss Eyes: no eye pain and no worsening vision Ear, Nose, Mouth, Throat: no ear pain, no hearing loss, no nasal congestion and no sore throat Respiratory: no cough, no chest congestion and no wheezing Cardiovascular: no chest pain and no dyspnea Gastrointestinal: as per Subjective / HPI Genitourinary: no dysuria and no urinary incontinence Musculoskeletal: no joint pain Integumentary: no rash and no pruritus Neurologic: no tingling, no numbness and no dizziness Psychiatric: no suicidal ideation and no confusion Endocrine: no cold intolerance and no heat intolerance Hematologic / Lymphatic: no easy bleeding and no easy bruising Allergy / Immunological: no problem reported Physical Exam Constitutional: no acute distress Eyes: + anicteric sclerae ENMT: external ear and nose normal, oropharynx normal Neck: normal visual inspection Respiratory: normal respiratory effort, lungs clear to auscultation Cardiovascular: Rate/Rhythm: + tachycardic Heart Sounds: no murmur Gastrointestinal (Abdomen): normal bowel sounds, soft, nontender, no hepatosplenomegaly Musculoskeletal: Head/Neck/Chest: normocephalic and head atraumatic Skin: no rashes, warm and dry Neurologic: moves all extremities; no focal motor deficits Psychiatric: Orientation: alert and oriented x 3 Results & Data Vital Signs (Past 12 Hours) Vital Signs Temp Pulse Resp BP Pulse Ox 09/23/18 07:13 36.7 C 92 H 18 147/79 H 97 Laboratory Results - last 24 hr 09/22/18 09/22/18 09/22/18 15:30 16:36 20:22 Sodium Potassium Chloride Carbon Dioxide Anion Gap BUN Creatinine Est Cr Clr Drug Dosing Est GFR ( Amer) Est GFR (Non-Af Amer) BUN/Creatinine Ratio Glucose POC Glucose 91 85 112 H Calcium Stl C. diff Tox B Gene 09/22/18 09/23/18 09/23/18 22:40 05:30 07:40 Sodium 136 Potassium 3.6 D Chloride 104 Carbon Dioxide 25 Anion Gap 7.0 BUN 10 Creatinine 0.80 Est Cr Clr Drug Dosing 69.9 Est GFR ( Amer) 96.2 Est GFR (Non-Af Amer) 83.0 BUN/Creatinine Ratio 13.1 Glucose 99 POC Glucose 114 H Calcium 8.5 Stl C. diff Tox B Gene Negative Cdiff Gene 09/23/18 11:27 Sodium Potassium Chloride Carbon Dioxide Anion Gap BUN Creatinine Est Cr Clr Drug Dosing Est GFR ( Amer) Est GFR (Non-Af Amer) BUN/Creatinine Ratio Glucose POC Glucose 141 H Calcium Stl C. diff Tox B Gene
[2018-09-23] MEDS ORDERED: FAMOTIDINE 20 MG TAB PO SCH (21:00)
--- NOTE | 2018-09-23 23:57 | Discharge Summary ---
Date of Service September 23, 2018 Admission HPI Per Admitting Provider 57-year-old female with a history of Crohn's disease. For the past 6 days she has had intermittent episodes of nausea vomiting and diarrhea. She presented to the ED September [address] scan revealed postsurgical changes and some mesenteric adenopathy. Stool cultures were negative at that time. C. difficile was negative on September 13 and again today. She is volume depleted and has had some weakness and lightheadedness. Creatinine is up to 1.4. Sodium is 130 and bicarb is slightly low. This should improve with rehydration. She is acutely ill and admitted for further evaluation and treatment. Gastroenterology consultation has been requested. She drinks bottled water and also has city water to her house. No recent travels. Principal Diagnosis Bacterial overgrowth syndrome causing acute diarrhea Discharge Exam The patient appeared well nourished and normally developed. Vital signs as documented. Head exam is unremarkable. normocephalic, atraumatic Neck is without jugular venous distension, thyromegaly, or lymphademopathy Lungs are clear to auscultation and percussion. Cardiac exam reveals Rhythm is regular. First and second heart sounds normal. Abdominal exam reveals normal bowel sounds, soft no focal tenderness no rebound ostomy bag noted. Extremities are nonedematous and both pedal pulses are present Neurologic exam is A&Ox3, no focal deficits, strength is equal bilateral Psychologically seems neither anxious or depressed Skin is warm Dry without bruises or lesions Discharge Data Allergies Allergy/AdvReac Type Severity Reaction Status Date / Time methotrexate Allergy Intermediate RASH Unverified 09/15/18 13:17 metoprolol Allergy Mild RASH Verified 09/15/18 13:17 Sulfa (Sulfonamide Allergy Unknown RASH Verified 09/15/18 13:17 Antibiotics) metformin AdvReac Intermediate NAUSEA/WEAK Unverified 09/15/18 13:17 NESS metronidazole AdvReac Mild FLAGYL = Verified 09/15/18 13:17 RASH. TOLERATED IV FLAGYL 01/2011 ADM W/SLIGHT ITCH Consultations 09/15/18 16:37 Consult Gastroenterology Routine Ordered Studies 09/17/18 12:37 MR enterography wo/w con Routine Hospital Course (1) Acute gastroenteritis: This appears to be secondary to bacterial overgrowth as her symptoms have improved. will cotninue xifaxan. Continues tolerating advancement of diet, slightly reduced amount of ostomy output, will continue intravenous fluids changed to Normosol to avoid chloride load. Pepcid and PPI therapy. Repeat stool cultures have been negative so far. Giardia test pending. Repeat C. difficile test negative, will continue previous diarrheal agents of Lomotil Imodium and bismuth At discharge, patient improved. Will place patient xifaxan and will complete 14 days. Patient will also be on immodium and colestipol as well. Note: Elevetaed HR noted on monitor but auscultated a normal rate at 80. (2) Volume depletion: Improved. Hypokalemia. Potassium was replenished. Will place on potassium solution by mouth and will check potassium inn 5-7 days. (3) Acute renal insufficiency: Has resolved, now tolerating addition of lisinopril (4) Hyponatremia: Remains resolved (5) Type 2 diabetes mellitus: Basal bolus insulin with carb ratio acceptable control in the 100 range (6) History of Crohn's disease: MR enterography shows evidence of inflammatory bowel changes in the small bowel (7) DVT prophylaxis: Lovenox subcu Total Time Total Time Spent Total Time Spent (In Minutes): 32 Total Time Includes: Examination of the Patient, Discharge Planning and Medication Reconciliation Discharge Plan Discharge Items Patient Disposition: Home - Self-Care Reason For Visit: GASTROENTERITIS,VOLUME DEPLETION Discharge Diagnosis: Bacterial overgorwoth syndrome. Discharge Goals: Decrease discomfort Activity: Resume your previous activity Non-emergency contact: Primary Care Provider Call non-emergency contact if: you have any medication questions Follow-up/Referrals: Ambika Arceo CRNP [Primary Care Provider] - 09/25/18 10:30 am (Please, follow up at [facility] with Ambika FARLEY on FridaySeptember 25 at 10:30 am. *If you need to change this appointment, call the office at [phone].) Jaylen Araya [Physician] - 11/02/18 3:25 pm (Please, follow up with Dr. Araya on FridayNovember 02 at 3:25 pm. *The office is located at [address] [place] [address] in [place]. If you need to change this appointment, call the office at [phone].) Diet: Low Fiber and Low Fat Addtl Provider Instructions: Check potassium in 5-7 days. Followup with PCP in 1 week. Followup with gastroenterology in 1-2 weeks Will recommend to continue rifaximin for 14 days total. You can use immodium as needed. Prescriptions: New Xifaxan 550 mg Tablet 550 mg PO BID Qty: 22 RF: 0 loperamide 2 mg Capsule 2 mg PO BID PRN (Reason: diarrhea) Qty: 60 RF: 0 colestipol [Colestid] 1 gram Tablet 2 g PO BID@1000,2200 Qty: 60 RF: 0 potassium chloride 20 mEq/15 mL liquid 10 meq PO BID Qty: 105 RF: 0 Continued albuterol sulfate 90 mcg/actuation HFA aerosol inhaler 2 puff Inhalation QID PRN (Reason: Shortness Of Breath) Qty: 6.7 RF: 0 pantoprazole 40 mg tablet,delayed release (DR/EC) 40 mg PO DAILY RF: 0 aspirin 81 mg tablet PO .TAKE 1 TABLET DAILY. RF: 0 pen needle, diabetic [Easy Comfort Pen [place]] 31 gauge x 5/16" needle .ROUTE .MEDSUPPLY Qty: 30 RF: 0 Entyvio 300 mg recon soln 300 mg IV .COMPLEX RF: 0 atorvastatin 10 mg tablet 10 mg PO QAM RF: 0 acetaminophen 500 mg tablet 500 mg PO DIRECTED PRN (Reason: fever) RF: 0 magnesium oxide 400 mg (241.3 mg magnesium) tablet 400 mg PO QAM RF: 0 lisinopril 5 mg tablet 5 mg PO QAM RF: 0 fluoxetine 20 mg capsule 20 mg PO QAM RF: 0 calcium carbonate-vitamin D3 [Calcium 500 + D] 500 mg(1,250mg) -200 unit tablet 1 tab PO QAM RF: 0 insulin glargine 100 unit/mL (3 mL) insulin pen 10 units subcut QAM RF: 0 ondansetron 4 mg tablet,disintegrating 4 mg PO DAILY PRN (Reason: Nausea) RF: 0 Discontinued dulaglutide 1.5 mg/0.5 mL pen injector 1.5 mg subcut WK Qty: 2 RF: 5 oxycodone-acetaminophen 5-325 mg tablet 1 tab PO Q8H RF: 0 omeprazole 20 mg capsule,delayed release(DR/EC) 20 mg PO QAM RF: 0 Stand-Alone Forms: [facility] Discharge Orders: Discharge Order (Routine); Ordered 09/23/18 Ordered By: Brady Varner Admission Data Admit Date/Time: 09/15/18 15:22 Attending Provider: Brady Varner Admit Provider: Mamadou Schneider Primary Care Provider: Ambika Arceo Other Providers: Jaylen Araya ; Mamadou Schneider Service: Medical Other Interventions: Discharge Summary Assessment (RN) Last Done: 09/23/18 16:14 DC Date/Time DO NOT enter until pt leaves facility: 09/23/18 16:45
== END 2018-09-23 16:45 | disposition home or self-care (01) | DRG 392 ==
LOC: ED 11:32 → 4W 15:22 → SUATTDRO 15:22 → 4W 16:01